=== PATIENT | male | born 1935 | race Caucasian/White ===

== ENCOUNTER 2021-08-17 16:24 | Emergency (ER) | payer OTHER, MEDICARE ==
--- NOTE | 2021-08-17 16:46 | EDM.PDOC ---
ED HPI GENERAL MEDICAL PROBLEM - General Chief Complaint: General Stated Complaint: fall, facial laceration, change in mental status Time Seen by Provider: 08/17/21 16:35 Source of Information: Reports: Patient, Half-Way Records - History of Present Illness INITIAL COMMENTS - FREE TEXT/NARRATIVE: Patient comes to the emergency department today from the local [facility] home with concerns of a fall and altered mental status. According to the nurses report from the [facility] this patient has had a history of sneaking alcohol into the facility. Today he was walking through the doorway when he fell striking his head. He has been drowsy and he has had a altered mental status as well. They did find a bottle of Unisom in his room with a total of 12 tablets left and 32 were in the bottle. The patient does admit that he took 7 of the Unisom tablets today so that he could sleep. Although he tells myself that he took 4 of them over the day to try to help him sleep. According to the long term this is not his normal mentation. Patient knows that he is in [place] although he thinks he is at the [facility]. He knows what year it is. He does complain of some pain to his left cheek. He had no weakness dizziness lightheadedness chest pain or reasons for falling he reports. He felt somewhat unstable on his feet and fell. He relates that he slept well last night but he wanted to sleep today so he took anywhere from 4 to 7 tablets of Unisom today so that he would sleep. This is something he does on a regular basis. He denies any alcohol. He denies any headache neck pain back pain. He denies any paresthesias upper lower extremities. No chest pain or shortness of breath or difficulty breathing. No fever no chills. No abdominal pain nausea or vomiting. No weakness dizziness lightheadedness. 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) Left Face/Facial Pain Score (Numeric/FACES): 3 - Related Data Allergies Allergy/AdvReac Type Severity Reaction Status Date / Time No Known Allergies Allergy Verified 08/17/21 17:16 Home Meds: Home Meds Acetaminophen [Pain Relief] 650 mg PO Q6HR PRN 08/17/21 [History] Albuterol Sulfate [Albuterol Sulfate Hfa] 8.5 gm IH Q4HR PRN 08/17/21 [History] Budesonide/Formoterol Fumarate [Symbicort 80-4.5 MCG] 2 puff IH BID 08/17/21 [History] Cetirizine [ZyrTEC] 10 mg PO DAILY 08/17/21 [History] Escitalopram [Lexapro] 10 mg PO DAILY 08/17/21 [History] Fluticasone Propionate [Flovent Diskus] 2 spray NASBOTH DAILY 08/17/21 [History] Furosemide [Lasix] 20 mg PO DAILY 08/17/21 [History] Gabapentin [Neurontin] 300 mg PO TID 08/17/21 [History] Ibuprofen [Advil] 200 mg PO BID PRN 08/17/21 [History] Melatonin 6 mg PO DAILY 08/17/21 [History] Memantine HCl [Namenda] 10 mg PO BID 08/17/21 [History] QUEtiapine Fumarate [Seroquel] 50 mg PO DAILY 08/17/21 [History] Riboflavin (Vitamin B2) [Riboflavin] 200 mg PO BID 08/17/21 [History] carvediloL [Carvedilol] 3.125 mg PO BID 08/17/21 [History] diphenhydrAMINE/Zinc Acetate [Banophen Anti-Itch 2%] 1 applic TOP BID PRN 08/17/21 [History] lisinopriL [Lisinopril] 10 mg PO DAILY 08/17/21 [History] ED ROS GENERAL - Review of Systems Review Of Systems: Comprehensive ROS is negative, except as noted in HPI. ED EXAM, GENERAL - Physical Exam Exam: See Below Exam Limited By: Altered Mental Status (He is somewhat slurred speech although I do not know his baseline.) General Appearance: Alert, WD/WN, No Apparent Distress Eye Exam: Bilateral Eye: EOMI, PERRL Ears: Normal External Exam, Normal Canal, Normal TMs Ear Exam: Bilateral Ear: TM normal Nose: Normal Inspection, Normal Mucosa Throat/Mouth: Normal Inspection, Normal Lips, Normal Teeth, Normal Oropharynx, Normal Voice Head: No: Atraumatic (On the left zygomatic arch there is a transverse laceration minimally into the subcutaneous tissue approximately 3 cm in length. At the bridge of the nose between the eyebrows there is an abrasion with a small amount of bleeding. No bony deformity to the face. Rest of the head and face is atrauma) Neck: Normal Inspection, Supple, Non-Tender, Full Range of Motion. No: Tender Lateral, Tender Midline Respiratory/Chest: No Respiratory Distress, Lungs Clear, Normal Breath Sounds, No Accessory Muscle Use, Chest Non-Tender Cardiovascular: Normal Peripheral Pulses, Regular Rate, Rhythm, No Murmur Peripheral Pulses: 2+: Radial (L), Radial (R), Posterior Tibial (L), Posterior Tibial (R), Dorsalis Pedis (L), Dorsalis Pedis (R) GI/Abdominal: Normal Bowel Sounds, Soft, Non-Tender (Male) Exam: Deferred Rectal (Males) Exam: Deferred Back Exam: Normal Inspection, Full Range of Motion Extremities: Normal Inspection, Normal Range of Motion, Non-Tender, No Pedal Edema, Normal Capillary Refill Neurological: Alert, Oriented (He knows what year it is he knows he is in [place] he knows that he fell. He remembers the events of the day. He is confused of being in the hospital), CN II-XII Intact, Normal Reflexes, No Motor/Sensory Deficits Psychiatric: Flat Affect Skin Exam: Warm, Dry, Intact, Normal Color, No Rash Course - Vital Signs Last Recorded V/S: Last Vital Signs Temp 98.1 F 08/17/21 16:25 Pulse 67 08/17/21 16:25 Resp 18 08/17/21 16:25 BP 156/98 H 08/17/21 16:25 Pulse Ox 98 08/17/21 16:25 - Orders/Labs/Meds Orders: Active Orders 24 hr Category Date Time Status Head wo Cont [CT] Stat Exams 08/17/21 16:37 Taken Maxillofacial w/o CM [Max Facial Sinus wo Cont] [CT] Exams 08/17/21 16:46 Taken Stat CULTURE URINE [RM] Stat Lab 08/17/21 17:10 Received SALICYLATE [REF] Stat Lab 08/17/21 17:10 Received Labs: Laboratory Tests 08/17/21 08/17/21 08/17/21 Range/Units 17:10 17:10 17:10 WBC 5.5 (4.0-10.2) K/uL RBC 4.72 (4.33-5.41) M/uL Hgb 14.5 (13.1-16.8) g/dL Hct 43.3 (39.0-49.0) % MCV 91.7 D (84.0-98.0) fL MCH 30.7 (28.2-33.3) pg MCHC 33.5 (31.7-36.0) g/dL RDW 13.8 (11.2-14.1) % Plt Count 183 (150-350) K/uL Neut % (Auto) 71.6 (45.0-80.0) % Lymph % (Auto) 14.8 (10.0-50.0) % [place] % (Auto) 9.9 (2.0-14.0) % Eos % (Auto) 3.5 (0.0-5.0) % Baso % (Auto) 0.2 (0.0-2.0) % Neut # (Auto) 3.91 (1.40-7.00) K/uL Lymph # (Auto) 0.81 (0.50-3.50) K/uL [place] # (Auto) 0.54 (0.00-1.00) K/uL Eos # (Auto) 0.19 (0.00-0.50) K/uL Baso # (Auto) 0.01 (0.00-0.20) K/uL PT (9.6-11.3) SEC INR APTT (23.6-29.8) SEC Sodium (136-145) mmol/L Potassium (3.5-5.1) mmol/L Chloride (98-107) mmol/L Carbon Dioxide (21.0-32.0) mmol/L Anion Gap (7-15) meq/L BUN (7-18) mg/dL Creatinine (0.51-1.17) mg/dL Est Cr Clr Drug Dosing Estimated GFR (MDRD) mL/min Glucose (70-99) mg/dL Calcium (8.5-10.1) mg/dL Total Bilirubin (0.2-1.0) mg/dL AST (15-37) U/L ALT (12-78) U/L Alkaline Phosphatase (46-116) IU/L Troponin I High Sens (<=76) ng/L Total Protein (6.4-8.2) g/dL Albumin (3.4-5.0) g/dL TSH, Ultra Sensitive (0.358-3.740) mIU/mL Specimen Type Urinvoid Urine Color Zainab Urine Appearance Clear Urine pH 6.5 (5.0-9.0) Ur Specific [place] 1.025 (1.005-1.030) Urine Protein Negative (NEGATIVE) mg/dL Urine Glucose (UA) Negative (NEGATIVE) mg/dL Urine Ketones Negative (NEGATIVE) mg/dL Urine Occult Blood Negative (NEGATIVE) Urine Nitrite Negative (NEGATIVE) Urine Bilirubin Negative (NEGATIVE) Urine Urobilinogen 1.0 (0.2-1.0) E.U./dL Ur Leukocyte Esterase Small H (NEGATIVE) Urine RBC Not seen /HPF Urine WBC 5-10 H /HPF Ur Epithelial Cells Occasional /LPF Urine Bacteria Few (NONE TO FEW) /HPF Urine Opiates Screen Negative (NEGATIVE) Ur Buprenorphine Scrn Negative (NEGATIVE) Ur Oxycodone Screen Negative (NEGATIVE) Ur EDDP (Meth Metab) Negative (NEGATIVE) Acetaminophen (10.0-30.0) ug/mL Ur Barbiturates Screen Negative (NEGATIVE) Ur Tricyclics Screen Negative (NEGATIVE) Ur Amphetamine Screen Negative (NEGATIVE) U Methamphetamines Scrn Negative (NEGATIVE) Urine MDMA Screen Negative (NEGATIVE) U Benzodiazepines Scrn Negative (NEGATIVE) U Cocaine Metab Screen Negative (NEGATIVE) U Marijuana (THC) Screen Negative (NEGATIVE) Ethyl Alcohol (0.000-0.080) g/dL 08/17/21 08/17/21 Range/Units 17:10 17:10 WBC (4.0-10.2) K/uL RBC (4.33-5.41) M/uL Hgb (13.1-16.8) g/dL Hct (39.0-49.0) % MCV (84.0-98.0) fL MCH (28.2-33.3) pg MCHC (31.7-36.0) g/dL RDW (11.2-14.1) % Plt Count (150-350) K/uL Neut % (Auto) (45.0-80.0) % Lymph % (Auto) (10.0-50.0) % [place] % (Auto) (2.0-14.0) % Eos % (Auto) (0.0-5.0) % Baso % (Auto) (0.0-2.0) % Neut # (Auto) (1.40-7.00) K/uL Lymph # (Auto) (0.50-3.50) K/uL [place] # (Auto) (0.00-1.00) K/uL Eos # (Auto) (0.00-0.50) K/uL Baso # (Auto) (0.00-0.20) K/uL PT 10.5 (9.6-11.3) SEC INR 1.0 APTT 22.4 L (23.6-29.8) SEC Sodium 141 (136-145) mmol/L Potassium 4.4 (3.5-5.1) mmol/L Chloride 102 (98-107) mmol/L Carbon Dioxide 28.4 (21.0-32.0) mmol/L Anion Gap 10.6 (7-15) meq/L BUN 20 H (7-18) mg/dL Creatinine 1.19 H (0.51-1.17) mg/dL Est Cr Clr Drug Dosing TNP Estimated GFR (MDRD) 58 mL/min Glucose 104 H (70-99) mg/dL Calcium 8.9 (8.5-10.1) mg/dL Total Bilirubin 0.6 (0.2-1.0) mg/dL AST 18 (15-37) U/L ALT 26 (12-78) U/L Alkaline Phosphatase 79 (46-116) IU/L Troponin I High Sens 45 (<=76) ng/L Total Protein 6.9 (6.4-8.2) g/dL Albumin 3.9 (3.4-5.0) g/dL TSH, Ultra Sensitive 1.136 (0.358-3.740) mIU/mL Specimen Type Urine Color Urine Appearance Urine pH (5.0-9.0) Ur Specific [place] (1.005-1.030) Urine Protein (NEGATIVE) mg/dL Urine Glucose (UA) (NEGATIVE) mg/dL Urine Ketones (NEGATIVE) mg/dL Urine Occult Blood (NEGATIVE) Urine Nitrite (NEGATIVE) Urine Bilirubin (NEGATIVE) Urine Urobilinogen (0.2-1.0) E.U./dL Ur Leukocyte Esterase (NEGATIVE) Urine RBC /HPF Urine WBC /HPF Ur Epithelial Cells /LPF Urine Bacteria (NONE TO FEW) /HPF Urine Opiates Screen (NEGATIVE) Ur Buprenorphine Scrn (NEGATIVE) Ur Oxycodone Screen (NEGATIVE) Ur EDDP (Meth Metab) (NEGATIVE) Acetaminophen 0.0 L (10.0-30.0) ug/mL Ur Barbiturates Screen (NEGATIVE) Ur Tricyclics Screen (NEGATIVE) Ur Amphetamine Screen (NEGATIVE) U Methamphetamines Scrn (NEGATIVE) Urine MDMA Screen (NEGATIVE) U Benzodiazepines Scrn (NEGATIVE) U Cocaine Metab Screen (NEGATIVE) U Marijuana (THC) Screen (NEGATIVE) Ethyl Alcohol 0.002 (0.000-0.080) g/dL Meds: Medications Discontinued Medications Generic Name Dose Route Start Last Admin Trade Name Freq PRN Reason Stop Dose Admin Diphtheria/Tetanus/Acell Pertussis 0.5 ml 08/17/21 19:05 08/17/21 19:36 Diphtheria,Pertussis(Acell),Tetanus Vaccine 0.5 Ml Syringe IM 08/17/21 19:06 0.5 ml .ONCE ONE Administration - Radiology Interpretation Free Text/Narrative:: CT of the head per radiology shows no acute intercranial abnormality. CT maxillofacial per radiology shows no acute facial fractures. - Re-Assessments/Exams Free Text/Narrative Re-Assessment/Exam: 08/17/21 23:51 IV was established labs were drawn. EKG without any signs of ischemia with a normal sinus rhythm. CT of the head and sinuses are negative. Laboratory evaluation is rather unremarkable. Other than a creatinine of 1.19 and a BUN of 20 which is at baseline. His troponin is normal at 45. His urinalysis shows a small amount of leuk esterase you WBCs 510 urine culture pending. Urine drug screen negative Alcohol negative. Acetaminophen negative. Salicylate pending. Abrasion between the eyebrows does not need repair this was cleansed bacitracin was applied. The very superficial thin laceration along the left zygomatic arch is rather thin and almost more like a skin tear into the subcutaneous tissue as well. I do not feel that sutures will be appropriate due to the very frail this aspect of this skin. The area was cleansed with chlorhexidine and sterile saline. A mixture of Steri-Strips as well as Dermabond were applied to the laceration with excellent skin approximation. The patient tolerated procedure well. The patient is alert appropriate and does not appear to be confused or in distress. He is able to ambulate on his own in the emergency department. I called and spoke with poison control with the concerns of the Unisom that he ingested in an attempt to take a nap today. [place] and had his he is vitally stable neurologically intact he can be discharged back to the nursing basic skill center at the [facility]. I discussed with the patient that he cannot take such medications as this without following the [id number] recommendations or the direction of his primary care provider that he is under in the long term. I asked him multiple times he did not take these medications in an attempt to harm himself or kill himself. He denies suicidal or homicidal ideation. We will discharge him back to the long term at this time. Departure - Departure Time of Disposition: 20:00 Disposition: DC/Tfer to [facility] 03 Clinical Impression: Fall Qualifiers: Encounter type: initial encounter Qualified Code(s): W19.XXXA - Unspecified fall, initial encounter Accidental medication overdose Qualifiers: Encounter type: initial encounter Qualified Code(s): T50.901A - Poisoning by unspecified drugs, medicaments and biological substances, accidental (unintentional), initial encounter Facial abrasion Qualifiers: Encounter type: initial encounter Qualified Code(s): S00.81XA - Abrasion of other part of head, initial encounter Facial laceration Qualifiers: Encounter type: initial encounter Qualified Code(s): S01.81XA - Laceration without foreign body of other part of head, initial encounter - Discharge Information Instructions: Fall Prevention in the Home, Adult, [id number], Laceration Care, Adult, [id number], Abrasion, [id number], Facial Laceration, Easy-to- Read Referrals: PCP,Unknown [Primary Care Provider] - Forms: ED Department Discharge Additional Instructions: Continue all previous medications. Do not allow the resident to have any medications on his own due to the risk of overdose as shown tonight. Facial abrasion. Cleanse twice daily with soap and water. Bacitracin and bandage until healed. Facial laceration, the glue and steri-strips will come off on their own. DO not get the area of the face wet. Do not pull at the steri strips or glue. This will fall off on its own. Trim with a finger nail clipper if needed when peeling to prevent pulling at it. Watch for signs of infection. His tetanus immunization was updated today in the ED. Return to the ED if new or worsening symptoms. Sepsis Event Note (ED) - Evaluation Sepsis Screening Result: No Definite Risk - Focused Exam Vital Signs: Vital Signs Temp Pulse Resp BP Pulse Ox 08/17/21 16:25 98.1 F 67 18 156/98 H 98 - My Orders Last 24 Hours: My Active Orders 08/17/21 16:37 Head wo Cont [CT] Stat 08/17/21 16:46 Maxillofacial w/o CM [Max Facial Sinus wo Cont] [CT] Stat 08/17/21 17:10 CULTURE URINE [RM] Stat SALICYLATE [REF] Stat - Assessment/Plan Last 24 Hours: My Active Orders 08/17/21 16:37 Head wo Cont [CT] Stat 08/17/21 16:46 Maxillofacial w/o CM [Max Facial Sinus wo Cont] [CT] Stat 08/17/21 17:10 CULTURE URINE [RM] Stat SALICYLATE [REF] Stat
[2021-08-17 17:31] LABS: PTT,PARTIAL THROMBOPLSTIN TIME 22.4 SEC (23.6-29.8)
[2021-08-17 17:39] LABS: BARBITURATE SCREEN,URINE NEGATIVE (NEGATIVE); BENZODIAZEPINES SCREEN,URINE NEGATIVE (NEGATIVE); EDDP,URINE SCREEN NEGATIVE (NEGATIVE); TCA SCREEN,URINE NEGATIVE (NEGATIVE); THC SCREEN,URINE 50 NG/ML NEGATIVE (NEGATIVE)
[2021-08-17 17:40] LABS: ANION GAP 10.6 meq/L (7-15); BUPRENORPHINE SCREEN,URINE NEGATIVE (NEGATIVE); CHLORIDE,CL 102 mmol/L (98-107); SODIUM,NA 141 mmol/L (136-145)
[2021-08-17] MEDS: Diphtheria,Pertussis(Acell),Tetanus Vaccine 0.5 ML Syringe IM ONE (19:36)
--- NOTE | 2021-08-20 09:36 | PCM.SN.2 ---
- Free Text/Narrative Note: urine culture returns with 50.,000-100,000 cfu of pseudomonas aeruginosa. sensitive to all. All to 's home and talk to nurse Tish. He is doing better, wounds are healing well, no more falls. Is not self medicating. Not on antibiotics. Given the holiday, the nurse states they have some ER packs of medications and do have cipro 500 mg bid for 5 days available for them to use. They will take this out of the stock and treat the patient
== END 2021-08-17 20:20 ==
LOC: LL.ED 16:24
DX: T45.0X1A Poisoning by antiallergic and antiemetic drugs, accidental (unintentional), initial encounter (principal); S01.81XA Laceration without foreign body of other part of head, initial encounter; Z23 Encounter for immunization; W19.XXXA Unspecified fall, initial encounter; Y93.01 Activity, walking, marching and hiking; Y92.129 Unspecified place in nursing home as the place of occurrence of the external cause
CPT/HCPCS: 12013; 36415; 70450; 70486; 80053; 80143; 80179; 80305-QW; 80307; 81001; 84443; 84484; 85025; 85610; 85730; 87086; 87088; 87186; 90471; 90715; 93005; 99284; 99285-25

== ENCOUNTER 2021-08-21 16:25 | Inpatient (IN) | payer OTHER, MEDICARE ==
[~2021-08-21 16:25] MED LIST: LORazepam 2 MG/ML SDV IVPUSH ONE
[2021-08-21] MEDS ORDERED: levETIRAcetam in NaCl (iso-os) 100 ML ONE (16:54)
--- NOTE | 2021-08-21 17:06 | EDM.PDOC ---
ED HPI GENERAL MEDICAL PROBLEM - General Chief Complaint: Neurological Problem Stated Complaint: altered mental status Time Seen by Provider: 08/21/21 16:40 Source of Information: Reports: Patient, EMS, Penitentiary Records, Other (longterm staff) History Limitations: Reports: Other (confused, alerted, garbled speech) - History of Present Illness INITIAL COMMENTS - FREE TEXT/NARRATIVE: Patient presents to the ED for altered mental status, seizures. Patient was seen here 08/17/2021 for a fall after taking too many unisom to help him sleep. He was evaluated, alert and ambulatory and had not fractures or intracranial bleeding so was sent home to the [facility]. They did take away what was lft of the unisom in the room at this time. He is on the basic side and usually comes out for meals and his medications. Walks without assistance. A call was placed to them as his urine culture yielded pseudomonas and he was start on cipro yesterday. recieved two doses. He had been doing well but decreased appetite and had not eaten lunch prior to getting the new antibiotic. He stayed in his room for the day and when the night nurse went to his room at 23:30 she found him confused, trying to put his socks on wrong and two on the wrong foot. he had nonsensical language, garbled speech and was incontinent. This was highly abnormal for him as he is fastidious about his appearance according to the nurse. She changed him and put him to bed. She called the provider environmental solutions engineer Raul Salazar and discussed what was going on. She was instructed to stop the cipro for the pseudomonas and start bactrim today. Was told the cipro might have caused the confusion, garbled speech and AMS. Was instructed to sent him to the ED today if it continued. This am the nursing staff found him " foggy", but orientated, refused most of breakfast, but more like himself. He stayed in his room most of the day but had normal vitals and no fever. He refused lunch and required an assist of two to go to the bathroom even though he usually goes on his own,. His son and ex had been trying to reach him given the holiday and when he didn't answer, they called the nurse to go check on him. She found him getting out of the opposite side of the bed that he usually gets out ofo , had garbled speech and managed to state he wanted water. He was unable to hold the glass,and spilled the water. EMS was called. when they got him out of his bed they found 2 blue capsules ( unisom) and an empty unisom bottle. blood glucose was 127, normal vitals and he was transported here. Onset: Unknown/Unsure (possibly last night at 23:30) - Related Data Allergies Allergy/AdvReac Type Severity Reaction Status Date / Time No Known Allergies Allergy Verified 08/17/21 17:16 Home Meds: Home Meds Acetaminophen [Pain Relief] 650 mg PO Q6HR PRN 08/17/21 [History] Albuterol Sulfate [Albuterol Sulfate Hfa] 8.5 gm IH Q4HR PRN 08/17/21 [History] Budesonide/Formoterol Fumarate [Symbicort 80-4.5 MCG] 2 puff IH BID 08/17/21 [History] Cetirizine [ZyrTEC] 10 mg PO DAILY 08/17/21 [History] Escitalopram [Lexapro] 10 mg PO DAILY 08/17/21 [History] Fluticasone Propionate [Flovent Diskus] 2 spray NASBOTH DAILY 08/17/21 [History] Furosemide [Lasix] 20 mg PO DAILY 08/17/21 [History] Gabapentin [Neurontin] 300 mg PO TID 08/17/21 [History] Ibuprofen [Advil] 200 mg PO BID PRN 08/17/21 [History] Melatonin 6 mg PO DAILY 08/17/21 [History] Memantine HCl [Namenda] 10 mg PO BID 08/17/21 [History] QUEtiapine Fumarate [Seroquel] 50 mg PO DAILY 08/17/21 [History] Riboflavin (Vitamin B2) [Riboflavin] 200 mg PO BID 08/17/21 [History] carvediloL [Carvedilol] 3.125 mg PO BID 08/17/21 [History] diphenhydrAMINE/Zinc Acetate [Banophen Anti-Itch 2%] 1 applic TOP BID PRN 08/17/21 [History] lisinopriL [Lisinopril] 10 mg PO DAILY 08/17/21 [History] Sulfamethoxazole/Trimethoprim [Bactrim Ds Tablet] 1 each PO BID 08/21/21 [History] Past Medical History Cardiovascular History: Reports: Heart Failure Respiratory History: Reports: COPD Psychiatric History: Reports: Depression Social & Family History - Alcohol Use Alcohol Use History: Yes - Recreational Drug Use Recreational Drug Use: No Drug Use in Last 12 Months: No ED ROS GENERAL - Review of Systems Review Of Systems: Unable To Obtain Reason Not Obtained: altered mental status, confusion Skin: Reports: Wound (no new ones, from previous) Neurological: Reports: Confusion, Trouble Speaking, Difficulty Walking ED EXAM, NEURO - Physical Exam Exam: See Below Exam Limited By: Other (altered, garbled speech, moves all extremities, responds to voice, awake and protecting his airway) Eye Exam: Bilateral Eye: EOMI, Normal Inspection, PERRL Ears: Normal External Exam, Normal Canal, Normal TMs Nose: Normal Inspection, Normal Mucosa Throat/Mouth: Normal Inspection, No Airway Compromise Head Exam: Other (note healing wounds, steri strip and echymosis of the face. ) Neck: Normal Inspection Respiratory/Chest: Lungs Clear, Normal Breath Sounds, No Accessory Muscle Use Cardiovascular: Regular Rate, Rhythm, No Edema, No Rub GI/Abdominal: Normal Bowel Sounds, Soft, Non-Tender. No: Rigid, Rebound Neurological: Other (eyes are open, follows some commands, can move all extremities, speech is garbled, generalized seizure activity lasting 5-10 seconds with return to confused but awake baseline. ) #1 Interpretation EKG Date: 08/21/21 Time: 16:52 Rhythm: NSR QRS: LBBB QT: Normal (unchanged from previous at 456) Comparison: No Change (08/17/2021) Course - Vital Signs Last Recorded V/S: Last Vital Signs Temp 36.7 C 08/21/21 16:30 Pulse 75 08/21/21 17:00 Resp 20 08/21/21 17:00 BP 130/92 H 08/21/21 17:00 Pulse Ox 98 08/21/21 17:00 - Orders/Labs/Meds Orders: Active Orders 24 hr Category Date Time Status Admission Status [Patient Status] [ADT] Routine ADT 08/21/21 17:40 Ordered Cardiac Monitoring [RC] . DIRECTED Care 08/21/21 16:11 Active Cardiac Monitoring [RC] . DIRECTED Care 08/21/21 17:40 Ordered Ruiz Catheter Insertion [Insert Urinary Catheter] [OM. Care 08/21/21 17:30 Ordered PC] Q24H Peripheral IV Care [RC] . DIRECTED Care 08/21/21 16:12 Active Urinary Catheter Assessment [RC] ASDIRECTED Care 08/21/21 17:45 Active Chest 1V Frontal [CR] Stat Exams 08/21/21 16:11 Ordered Head wo Cont [CT] Stat Exams 08/21/21 16:11 Taken SALICYLATE [REF] Stat Lab 08/21/21 16:32 Received Sodium Chloride 0.9% [Normal Saline] 1,000 ml Med 08/21/21 17:30 Ordered IV ASDIRECTED Sodium Chloride 0.9% [Saline Flush] Med 08/21/21 16:11 Active 10 ml FLUSH ASDIRECTED PRN Tobramycin [Nebcin] 100 mg Med 08/21/21 18:15 Ordered Sodium Chloride 0.9% [Normal Saline] 100 ml IV Q8H Peripheral IV Insertion Adult [OM.PC] Routine Oth 08/21/21 16:11 Ordered Medication Orders Sodium Chloride (Normal Saline) 1,000 mls @ 999 mls/hr IV ASDIRECTED NICOLAS Last Admin: 08/21/21 17:23 Dose: 999 mls/hr Documented by: COXTAM Tobramycin 100 mg/ Sodium (Chloride) 102.5 mls @ 100 mls/hr IV Q8H NICOLAS Sodium Chloride (Sodium Chloride 0.9% 10 Ml Syringe) 10 ml FLUSH ASDIRECTED PRN PRN Reason: Keep Vein Open Labs: Laboratory Tests 08/21/21 08/21/21 08/21/21 Range/Units 16:32 16:32 16:32 WBC 6.9 (4.0-10.2) K/uL RBC 4.54 (4.33-5.41) M/uL Hgb 14.0 (13.1-16.8) g/dL Hct 41.8 (39.0-49.0) % MCV 92.1 (84.0-98.0) fL MCH 30.8 (28.2-33.3) pg MCHC 33.5 (31.7-36.0) g/dL RDW 13.7 (11.2-14.1) % Plt Count 163 (150-350) K/uL Neut % (Auto) 68.5 (45.0-80.0) % Lymph % (Auto) 18.5 (10.0-50.0) % [place] % (Auto) 10.8 (2.0-14.0) % Eos % (Auto) 1.9 (0.0-5.0) % Baso % (Auto) 0.3 (0.0-2.0) % Neut # (Auto) 4.69 (1.40-7.00) K/uL Lymph # (Auto) 1.27 (0.50-3.50) K/uL [place] # (Auto) 0.74 (0.00-1.00) K/uL Eos # (Auto) 0.13 (0.00-0.50) K/uL Baso # (Auto) 0.02 (0.00-0.20) K/uL Sodium 141 (136-145) mmol/L Potassium 4.2 (3.5-5.1) mmol/L Chloride 104 (98-107) mmol/L Carbon Dioxide 25.4 (21.0-32.0) mmol/L Anion Gap 11.6 (7-15) meq/L BUN 27 H (7-18) mg/dL Creatinine 1.11 (0.51-1.17) mg/dL Est Cr Clr Drug Dosing TNP Estimated GFR (MDRD) > 60 mL/min Glucose 121 H (70-99) mg/dL Lactic Acid 1.0 (0.4-2.0) mmol/L Calcium 8.9 (8.5-10.1) mg/dL Total Bilirubin 0.8 (0.2-1.0) mg/dL AST 35 (15-37) U/L ALT 31 (12-78) U/L Alkaline Phosphatase 81 (46-116) IU/L Troponin I High Sens 66 (<=76) ng/L C-Reactive Protein 0.9 (<=0.9) mg/dL Total Protein 7.4 (6.4-8.2) g/dL Albumin 4.1 (3.4-5.0) g/dL Specimen Type Urine Color Urine Appearance Urine pH (5.0-9.0) Ur Specific [place] (1.005-1.030) Urine Protein (NEGATIVE) mg/dL Urine Glucose (UA) (NEGATIVE) mg/dL Urine Ketones (NEGATIVE) mg/dL Urine Occult Blood (NEGATIVE) Urine Nitrite (NEGATIVE) Urine Bilirubin (NEGATIVE) Urine Urobilinogen (0.2-1.0) E.U./dL Ur Leukocyte Esterase (NEGATIVE) Urine Opiates Screen (NEGATIVE) Ur Buprenorphine Scrn (NEGATIVE) Ur Oxycodone Screen (NEGATIVE) Ur EDDP (Meth Metab) (NEGATIVE) Acetaminophen (10.0-30.0) ug/mL Ur Barbiturates Screen (NEGATIVE) Ur Tricyclics Screen (NEGATIVE) Ur Amphetamine Screen (NEGATIVE) U Methamphetamines Scrn (NEGATIVE) Urine MDMA Screen (NEGATIVE) U Benzodiazepines Scrn (NEGATIVE) U Cocaine Metab Screen (NEGATIVE) U Marijuana (THC) Screen (NEGATIVE) Ethyl Alcohol 0.001 (0.000-0.080) g/dL 08/21/21 08/21/21 08/21/21 Range/Units 16:32 17:38 17:38 WBC (4.0-10.2) K/uL RBC (4.33-5.41) M/uL Hgb (13.1-16.8) g/dL Hct (39.0-49.0) % MCV (84.0-98.0) fL MCH (28.2-33.3) pg MCHC (31.7-36.0) g/dL RDW (11.2-14.1) % Plt Count (150-350) K/uL Neut % (Auto) (45.0-80.0) % Lymph % (Auto) (10.0-50.0) % [place] % (Auto) (2.0-14.0) % Eos % (Auto) (0.0-5.0) % Baso % (Auto) (0.0-2.0) % Neut # (Auto) (1.40-7.00) K/uL Lymph # (Auto) (0.50-3.50) K/uL [place] # (Auto) (0.00-1.00) K/uL Eos # (Auto) (0.00-0.50) K/uL Baso # (Auto) (0.00-0.20) K/uL Sodium (136-145) mmol/L Potassium (3.5-5.1) mmol/L Chloride (98-107) mmol/L Carbon Dioxide (21.0-32.0) mmol/L Anion Gap (7-15) meq/L BUN (7-18) mg/dL Creatinine (0.51-1.17) mg/dL Est Cr Clr Drug Dosing Estimated GFR (MDRD) mL/min Glucose (70-99) mg/dL Lactic Acid (0.4-2.0) mmol/L Calcium (8.5-10.1) mg/dL Total Bilirubin (0.2-1.0) mg/dL AST (15-37) U/L ALT (12-78) U/L Alkaline Phosphatase (46-116) IU/L Troponin I High Sens (<=76) ng/L C-Reactive Protein (<=0.9) mg/dL Total Protein (6.4-8.2) g/dL Albumin (3.4-5.0) g/dL Specimen Type Urincath Urine Color Yellow Urine Appearance Slightly cloudy Urine pH 5.5 (5.0-9.0) Ur Specific [place] >= 1.030 (1.005-1.030) Urine Protein Negative (NEGATIVE) mg/dL Urine Glucose (UA) Negative (NEGATIVE) mg/dL Urine Ketones 40 H (NEGATIVE) mg/dL Urine Occult Blood Negative (NEGATIVE) Urine Nitrite Negative (NEGATIVE) Urine Bilirubin Small H (NEGATIVE) Urine Urobilinogen 0.2 (0.2-1.0) E.U./dL Ur Leukocyte Esterase Negative (NEGATIVE) Urine Opiates Screen Negative (NEGATIVE) Ur Buprenorphine Scrn Negative (NEGATIVE) Ur Oxycodone Screen Negative (NEGATIVE) Ur EDDP (Meth Metab) Negative (NEGATIVE) Acetaminophen < 0.0 L (10.0-30.0) ug/mL Ur Barbiturates Screen Negative (NEGATIVE) Ur Tricyclics Screen Negative (NEGATIVE) Ur Amphetamine Screen Negative (NEGATIVE) U Methamphetamines Scrn Negative (NEGATIVE) Urine MDMA Screen Negative (NEGATIVE) U Benzodiazepines Scrn Negative (NEGATIVE) U Cocaine Metab Screen Negative (NEGATIVE) U Marijuana (THC) Screen Negative (NEGATIVE) Ethyl Alcohol (0.000-0.080) g/dL Meds: Medications Generic Name Dose Route Start Last Admin Trade Name Freq PRN Reason Stop Dose Admin Sodium Chloride 1,000 mls @ 999 mls/hr 08/21/21 17:30 08/21/21 17:23 Normal Saline IV 999 mls/hr ASDIRECTED NICOLAS Administration Tobramycin 100 mg/ Sodium 102.5 mls @ 100 mls/hr 08/21/21 18:15 Chloride IV Q8H NICOLAS Sodium Chloride 10 ml 08/21/21 16:11 Sodium Chloride 0.9% 10 Ml Syringe FLUSH ASDIRECTED PRN Keep Vein Open Discontinued Medications Generic Name Dose Route Start Last Admin Trade Name Freq PRN Reason Stop Dose Admin Levetiracetam Confirm 08/21/21 16:54 08/21/21 16:58 Levetiracetam In Nacl (Iso-Os) Administered 08/21/21 16:55 400 mls/hr Dose Administration 100 mls @ as directed .ROUTE .STK-MED ONE Lorazepam 2 mg 08/21/21 16:11 08/21/21 16:56 Lorazepam 2 Mg/Ml Sdv IVPUSH 08/21/21 16:12 1 mg ONETIME ONE Administration Lorazepam Confirm 08/21/21 17:11 08/21/21 17:22 Lorazepam 2 Mg/Ml Sdv Administered 08/21/21 17:12 Not Given Dose 2 mg .ROUTE .STK-MED ONE Lorazepam 1 mg 08/21/21 17:16 08/21/21 17:21 Lorazepam 2 Mg/Ml Sdv IVPUSH 08/21/21 17:17 1 mg ONETIME ONE Administration - Radiology Interpretation Free Text/Narrative:: ct of the discussed with radiology,. No acute changes, chronic changes noted, see report. cxr, no acute seen, preliminary report only - Re-Assessments/Exams Free Text/Narrative Re-Assessment/Exam: Patietn presents alerted, seizure activity, intermittant periods of altered, history of pillhoarding. concern for possibility of unknown amount of unisom and unknown ingestion time. Labs, urine, urine drug, ct head, chest x-ray and ekg. iv started noraml saline bolus 500 cc then 100 /hr. 08/21/21 17:22 has been having spells of seizure type activity, no incontinence for 5-10 seconds generalized. return to confused baseline and garbled speech. given 1 mg of ativan then 500 mg of keppra started iv. about 10 minutes later given 1 mg ativan IVp. protecting his airway. Ct of the head without acute changes, discussed with radiologist. 08/21/21 17:54 nursing staff did tell me that hey still had the old unisom bottle from 08/17 and the 12 pills. They serached his room and found a bottle of motrin 200 mg strength with 3 tablets gone out of it with the empty unisom bottle and two tablets. Unsure of how many tablets there were or when he would have taken them. Did discuss with poison control, normal labs, head ct, urine is pending, salicylate a send out. anion gap is high, has a prolonged qtc, qrs duration, but this is unchanged, will continue gentle hydration. 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 Other differential diagnosis are cipro adverse side effect, post concussion injury with seizures. Will still need to treat the pseudomonas, control seizures and keppra regular doses and ativan for breakthrough. Patient is sedated, protecting his airway and will be admitted for inpatient for at least two midnights as he may not be appropriate for basic cares anymore and need placement with skilled side. 08/21/21 18:18 /discussion with the son Robert that he used to live with. He is not surprised as to the outcome and has actually seen his dad in this position due to overuse/abuse of the Benadryl before. He has a history of hiding pills/alcohol etc. Does agree that he probably needs the skilled side of the [place] home. Will have social work/case management work on this. Departure - Departure Time of Disposition: 17:41 Disposition: Admitted As Inpatient 66 Clinical Impression: Seizures, Altered mental status Accidental medication overdose Qualifiers: Encounter type: initial encounter Qualified Code(s): T50.901A - Poisoning by unspecified drugs, medicaments and biological substances, accidental (uninte ntional), initial encounter - Discharge Information Referrals: Raul Salazar PA [Physician Tool/Die Maker] - Forms: ED Department Discharge Additional Instructions: USE ED NOTE FOR ADMISSION H & P Sepsis Event Note (ED) - Evaluation Sepsis Screening Result: No Definite Risk - Focused Exam Vital Signs: Vital Signs Temp Pulse Resp BP Pulse Ox 08/21/21 17:00 75 20 130/92 H 98 08/21/21 16:45 80 18 115/93 H 99 08/21/21 16:30 36.7 C 85 18 149/72 H 98 - My Orders Last 24 Hours: My Active Orders 08/21/21 16:11 Cardiac Monitoring [RC] . DIRECTED Chest 1V Frontal [CR] Stat Head wo Cont [CT] Stat Sodium Chloride 0.9% [Saline Flush] 10 ml FLUSH ASDIRECTED PRN Peripheral IV Insertion Adult [OM.PC] Routine 08/21/21 16:12 Peripheral IV Care [RC] . DIRECTED 08/21/21 16:32 SALICYLATE [REF] Stat 08/21/21 17:30 Ruiz Catheter Insertion [Insert Urinary Catheter] [OM.PC] Q24H Sodium Chloride 0.9% [Normal Saline] 1,000 ml IV ASDIRECTED 08/21/21 17:40 Admission Status [Patient Status] [ADT] Routine Cardiac Monitoring [RC] . DIRECTED 08/21/21 17:45 Urinary Catheter Assessment [RC] ASDIRECTED 08/21/21 18:15 Tobramycin [Nebcin] 100 mg Sodium Chloride 0.9% [Normal Saline] 100 ml IV Q8H - Assessment/Plan Last 24 Hours: My Active Orders 08/21/21 16:11 Cardiac Monitoring [RC] . DIRECTED Chest 1V Frontal [CR] Stat Head wo Cont [CT] Stat Sodium Chloride 0.9% [Saline Flush] 10 ml FLUSH ASDIRECTED PRN Peripheral IV Insertion Adult [OM.PC] Routine 08/21/21 16:12 Peripheral IV Care [RC] . DIRECTED 08/21/21 16:32 SALICYLATE [REF] Stat 08/21/21 17:30 Ruiz Catheter Insertion [Insert Urinary Catheter] [OM.PC] Q24H Sodium Chloride 0.9% [Normal Saline] 1,000 ml IV ASDIRECTED 08/21/21 17:40 Admission Status [Patient Status] [ADT] Routine Cardiac Monitoring [RC] . DIRECTED 08/21/21 17:45 Urinary Catheter Assessment [RC] ASDIRECTED 08/21/21 18:15 Tobramycin [Nebcin] 100 mg Sodium Chloride 0.9% [Normal Saline] 100 ml IV Q8H
[2021-08-21] MEDS ORDERED: LORazepam 2 MG/ML SDV ONE (17:11)
[2021-08-21 17:12] LABS: ANION GAP 11.6 meq/L (7-15); CHLORIDE,CL 104 mmol/L (98-107); SODIUM,NA 141 mmol/L (136-145)
[2021-08-21] MEDS ORDERED: LORazepam 2 MG/ML SDV IVPUSH ONE (17:16)
[2021-08-21] MEDS ORDERED: Sodium Chloride 0.9% 1,000 ML IV SCH (17:30)
[2021-08-21 17:52] LABS: BARBITURATE SCREEN,URINE NEGATIVE (NEGATIVE); BENZODIAZEPINES SCREEN,URINE NEGATIVE (NEGATIVE); EDDP,URINE SCREEN NEGATIVE (NEGATIVE); TCA SCREEN,URINE NEGATIVE (NEGATIVE); THC SCREEN,URINE 50 NG/ML NEGATIVE (NEGATIVE)
[2021-08-21 17:54] LABS: BUPRENORPHINE SCREEN,URINE NEGATIVE (NEGATIVE)
[2021-08-21] MEDS ORDERED: Promethazine 25 MG Tab PO PRN (18:24)
[2021-08-21] MEDS ORDERED: Ibuprofen 200 MG Tab PO PRN (18:36)
[2021-08-21] MEDS ORDERED: Albuterol 6.7 GM Inhaler INH PRN (18:36)
[2021-08-21] MEDS ORDERED: Folic Acid 50 MG/10 ML MDV IV SCH (18:45)
[2021-08-21] MEDS: Thiamine 500 MG in Sodium Chloride 0.9% 250 ML IV SCH (21:13)
[2021-08-21] MEDS: Pantoprazole 40 MG Vial IV SCH (21:15)
[2021-08-21] MEDS: Sodium Chloride 0.9% 10 ML Syringe FLUSH PRN (21:15)
[2021-08-22] MEDS: Morphine 2 MG/ML SYRINGE IVPUSH PRN ×2 (01:06→17:10)
[2021-08-22] MEDS: Sodium Chloride 0.9% 1,000 ML IV SCH ×2 (01:07→15:48)
[2021-08-22] MEDS: Thiamine 500 MG in Sodium Chloride 0.9% 250 ML IV SCH ×3 (04:45→18:31)
[2021-08-22] MEDS ORDERED: Folic Acid 50 MG/10 ML MDV PO SCH (07:15)
[2021-08-22] MEDS: QUEtiapine 25 MG Tab PO SCH (07:55)
[2021-08-22] MEDS: Carvedilol 3.125 MG Tab PO SCH ×2 (07:55→17:16)
[2021-08-22] MEDS: Cetirizine 10 MG Tab PO SCH (07:56)
[2021-08-22] MEDS: Memantine 10 MG Tab PO SCH ×2 (07:56→17:16)
[2021-08-22] MEDS: Folic Acid 1 MG Tab PO SCH (07:56)
[2021-08-22] MEDS: Pantoprazole 40 MG Vial IV SCH ×2 (07:57→19:30)
[2021-08-22] MEDS: Formoterol/Mometasone 100-5 MCG 8.8 GM Inhaler IH SCH ×2 (07:58→17:11)
[2021-08-22] MEDS: LORazepam 2 MG/ML SDV IV PRN ×2 (07:58→12:08)
[2021-08-22] MEDS: Fluticasone Propionate Nasal Spray 16 GM Bottle NASBOTH SCH (07:59)
[2021-08-22] MEDS ORDERED: RIBOFLAVIN 100 MG PO SCH (08:00)
[2021-08-22] MEDS: Acetaminophen 325 MG Tab PO PRN (08:00)
--- NOTE | 2021-08-22 08:00 | PCM.PN ---
- General Info Date of Service: 08/22/21 Admission Dx/Problem (Free Text): Admission Diagnosis/Problem Admission Diagnosis/Problem Seizure after head injury abuse of benadryl altered mental status history of alcohol abuse Subjective Update: Patient slept part of the night, was agitated, confused and trying to get out of bed to urinate ( has saenz catheter). No neurological deficits, can be redirected. Drowsy. Passed bedside swallow test. no new complaints, seizures have stopped, VSS - Review of Systems General: Reports: No Symptoms. Denies: Fever, Chills HEENT: Reports: No Symptoms. Denies: Headaches, Sore Throat, Rhinitis Pulmonary: Reports: No Symptoms. Denies: Shortness of Breath, Cough, Sputum Cardiovascular: Reports: No Symptoms. Denies: Chest Pain, Orthopnea Gastrointestinal: Reports: No Symptoms. Denies: Abdominal Pain, Diarrhea, Nausea, Vomiting Genitourinary: Reports: Urgency (due to saenz catheter) Musculoskeletal: Reports: No Symptoms Skin: Reports: Other (healing bruises right knee, bilateral arms, face) Neurological: Reports: Confusion, Difficulty Walking Psychiatric: Reports: Confusion, Agitation - Patient Data Vitals - Most Recent: Last Vital Signs Temp 36.0 C L 08/22/21 07:05 Pulse 63 08/22/21 07:05 Resp 18 08/22/21 07:05 BP 167/60 H 08/22/21 07:05 Pulse Ox 96 08/22/21 07:05 Weight - Most Recent: 67.5 kg I&O - Last 24 Hours: Intake & Output 08/21/21 08/22/21 08/22/21 22:59 06:59 14:59 Intake Total 50 2155 Output Total 600 Balance 50 1555 Lab Results Last 24 Hours: Laboratory Results - last 24 hr 08/21/21 08/21/21 08/21/21 Range/Units 16:32 16:32 16:32 WBC 6.9 (4.0-10.2) K/uL RBC 4.54 (4.33-5.41) M/uL Hgb 14.0 (13.1-16.8) g/dL Hct 41.8 (39.0-49.0) % MCV 92.1 (84.0-98.0) fL MCH 30.8 (28.2-33.3) pg MCHC 33.5 (31.7-36.0) g/dL RDW 13.7 (11.2-14.1) % Plt Count 163 (150-350) K/uL Neut % (Auto) 68.5 (45.0-80.0) % Lymph % (Auto) 18.5 (10.0-50.0) % Campbell % (Auto) 10.8 (2.0-14.0) % Eos % (Auto) 1.9 (0.0-5.0) % Baso % (Auto) 0.3 (0.0-2.0) % Neut # (Auto) 4.69 (1.40-7.00) K/uL Lymph # (Auto) 1.27 (0.50-3.50) K/uL Campbell # (Auto) 0.74 (0.00-1.00) K/uL Eos # (Auto) 0.13 (0.00-0.50) K/uL Baso # (Auto) 0.02 (0.00-0.20) K/uL Sodium 141 (136-145) mmol/L Potassium 4.2 (3.5-5.1) mmol/L Chloride 104 (98-107) mmol/L Carbon Dioxide 25.4 (21.0-32.0) mmol/L Anion Gap 11.6 (7-15) meq/L BUN 27 H (7-18) mg/dL Creatinine 1.11 (0.51-1.17) mg/dL Est Cr Clr Drug Dosing TNP Estimated GFR (MDRD) > 60 mL/min Glucose 121 H (70-99) mg/dL Lactic Acid 1.0 (0.4-2.0) mmol/L Calcium 8.9 (8.5-10.1) mg/dL Total Bilirubin 0.8 (0.2-1.0) mg/dL AST 35 (15-37) U/L ALT 31 (12-78) U/L Alkaline Phosphatase 81 (46-116) IU/L Troponin I High Sens 66 (<=76) ng/L C-Reactive Protein 0.9 (<=0.9) mg/dL Total Protein 7.4 (6.4-8.2) g/dL Albumin 4.1 (3.4-5.0) g/dL Specimen Type Urine Color Urine Appearance Urine pH (5.0-9.0) Ur Specific [place] (1.005-1.030) Urine Protein (NEGATIVE) mg/dL Urine Glucose (UA) (NEGATIVE) mg/dL Urine Ketones (NEGATIVE) mg/dL Urine Occult Blood (NEGATIVE) Urine Nitrite (NEGATIVE) Urine Bilirubin (NEGATIVE) Urine Urobilinogen (0.2-1.0) E.U./dL Ur Leukocyte Esterase (NEGATIVE) Urine Opiates Screen (NEGATIVE) Ur Buprenorphine Scrn (NEGATIVE) Ur Oxycodone Screen (NEGATIVE) Ur EDDP (Meth Metab) (NEGATIVE) Acetaminophen (10.0-30.0) ug/mL Ur Barbiturates Screen (NEGATIVE) Ur Tricyclics Screen (NEGATIVE) Ur Amphetamine Screen (NEGATIVE) U Methamphetamines Scrn (NEGATIVE) Urine MDMA Screen (NEGATIVE) U Benzodiazepines Scrn (NEGATIVE) U Cocaine Metab Screen (NEGATIVE) U Marijuana (THC) Screen (NEGATIVE) Ethyl Alcohol 0.001 (0.000-0.080) g/dL 08/21/21 08/21/21 08/21/21 Range/Units 16:32 17:38 17:38 WBC (4.0-10.2) K/uL RBC (4.33-5.41) M/uL Hgb (13.1-16.8) g/dL Hct (39.0-49.0) % MCV (84.0-98.0) fL MCH (28.2-33.3) pg MCHC (31.7-36.0) g/dL RDW (11.2-14.1) % Plt Count (150-350) K/uL Neut % (Auto) (45.0-80.0) % Lymph % (Auto) (10.0-50.0) % Campbell % (Auto) (2.0-14.0) % Eos % (Auto) (0.0-5.0) % Baso % (Auto) (0.0-2.0) % Neut # (Auto) (1.40-7.00) K/uL Lymph # (Auto) (0.50-3.50) K/uL Campbell # (Auto) (0.00-1.00) K/uL Eos # (Auto) (0.00-0.50) K/uL Baso # (Auto) (0.00-0.20) K/uL Sodium (136-145) mmol/L Potassium (3.5-5.1) mmol/L Chloride (98-107) mmol/L Carbon Dioxide (21.0-32.0) mmol/L Anion Gap (7-15) meq/L BUN (7-18) mg/dL Creatinine (0.51-1.17) mg/dL Est Cr Clr Drug Dosing Estimated GFR (MDRD) mL/min Glucose (70-99) mg/dL Lactic Acid (0.4-2.0) mmol/L Calcium (8.5-10.1) mg/dL Total Bilirubin (0.2-1.0) mg/dL AST (15-37) U/L ALT (12-78) U/L Alkaline Phosphatase (46-116) IU/L Troponin I High Sens (<=76) ng/L C-Reactive Protein (<=0.9) mg/dL Total Protein (6.4-8.2) g/dL Albumin (3.4-5.0) g/dL Specimen Type Urincath Urine Color Yellow Urine Appearance Slightly cloudy Urine pH 5.5 (5.0-9.0) Ur Specific [place] >= 1.030 (1.005-1.030) Urine Protein Negative (NEGATIVE) mg/dL Urine Glucose (UA) Negative (NEGATIVE) mg/dL Urine Ketones 40 H (NEGATIVE) mg/dL Urine Occult Blood Negative (NEGATIVE) Urine Nitrite Negative (NEGATIVE) Urine Bilirubin Small H (NEGATIVE) Urine Urobilinogen 0.2 (0.2-1.0) E.U./dL Ur Leukocyte Esterase Negative (NEGATIVE) Urine Opiates Screen Negative (NEGATIVE) Ur Buprenorphine Scrn Negative (NEGATIVE) Ur Oxycodone Screen Negative (NEGATIVE) Ur EDDP (Meth Metab) Negative (NEGATIVE) Acetaminophen < 0.0 L (10.0-30.0) ug/mL Ur Barbiturates Screen Negative (NEGATIVE) Ur Tricyclics Screen Negative (NEGATIVE) Ur Amphetamine Screen Negative (NEGATIVE) U Methamphetamines Scrn Negative (NEGATIVE) Urine MDMA Screen Negative (NEGATIVE) U Benzodiazepines Scrn Negative (NEGATIVE) U Cocaine Metab Screen Negative (NEGATIVE) U Marijuana (THC) Screen Negative (NEGATIVE) Ethyl Alcohol (0.000-0.080) g/dL Med Orders - Current: Current Medications Acetaminophen (Acetaminophen 325 Mg Tab) 650 mg PO Q4H PRN PRN Reason: Pain (Mild 1-3)/fever Albuterol (Albuterol 6.7 Gm Inhaler) 0 gm INH Q4HR PRN PRN Reason: Shortness of Breath Carvedilol (Carvedilol 3.125 Mg Tab) 3.125 mg PO BID [facility] Cetirizine HCl (Cetirizine 10 Mg Tab) 10 mg PO DAILY [facility] Enoxaparin Sodium (Enoxaparin 40 Mg/0.4 Ml Syringe) 40 mg SUBCUT DAILY [facility] Escitalopram Oxalate (Escitalopram 20 Mg Tab) 10 mg PO DAILY [facility] Fluticasone Propionate (Fluticasone Propionate Nasal Reva 16 Gm Bottle) 0 gm NASBOTH DAILY [facility] Folic Acid (Folic Acid 1 Mg Tab) 1 mg PO DAILY [facility] Sodium Chloride (Normal Saline) 1,000 mls @ 999 mls/hr IV ASDIRECTED [facility] Last Admin: 08/21/21 17:23 Dose: 999 mls/hr Documented by: Tobramycin 100 mg/ Sodium (Chloride) 102.5 mls @ 100 mls/hr IV Q8H [facility] Last Admin: 08/22/21 03:25 Dose: 100 mls/hr Documented by: Thiamine HCl 500 mg/ Sodium (Chloride) 255 mls @ 250 mls/hr IV Q8H [facility] Stop: 08/24/21 20:00 Last Admin: 08/22/21 04:45 Dose: 250 mls/hr Documented by: Levetiracetam 500 mg/ Premix 100 mls @ 400 mls/hr IV BID [facility] Thiamine HCl 250 mg/ Sodium (Chloride) 252.5 mls @ 250 mls/hr IV DAILY [facility] Stop: 08/29/21 09:01 Sodium Chloride (Normal Saline) 1,000 mls @ 100 mls/hr IV ASDIRECTED [facility] Last Admin: 08/22/21 01:07 Dose: 100 mls/hr Documented by: Ibuprofen (Ibuprofen 200 Mg Tab) 200 mg PO BID PRN PRN Reason: Pain Lorazepam (Lorazepam 2 Mg/Ml Sdv) 1 mg IV Q1H PRN PRN Reason: Agitation/seizures Melatonin (Melatonin 3 Mg Tab) 6 mg PO BEDTIME [facility] Memantine (Memantine 10 Mg Tab) 10 mg PO BID [facility] Mometasone Furoate/Formoterol Fumar (Formoterol/Mometasone 100-5 Mcg 8.8 Gm Inhaler) 2 puff IH BID [facility] Morphine Sulfate (Morphine 2 Mg/Ml Syringe) 2 mg IVPUSH Q2H PRN PRN Reason: Pain (severe 7-10) Last Admin: 08/22/21 01:06 Dose: 2 mg Documented by: Non-Formulary Medication (Riboflavin (Vitamin B2) [Riboflavin]) 200 mg PO BID [facility] Pantoprazole Sodium (Pantoprazole 40 Mg Vial) 40 mg IV Q12HR [facility] Last Admin: 08/21/21 21:15 Dose: 40 mg Documented by: Promethazine HCl (Promethazine 25 Mg Tab) 25 mg PO Q6H PRN PRN Reason: nausea, able to take PO Last Admin: 08/22/21 01:07 Dose: 25 mg Documented by: Quetiapine Fumarate (Quetiapine 25 Mg Tab) 50 mg PO DAILY [facility] Sodium Chloride (Sodium Chloride 0.9% 10 Ml Syringe) 10 ml FLUSH ASDIRECTED PRN PRN Reason: Keep Vein Open Last Admin: 08/21/21 21:15 Dose: 10 ml Documented by: Discontinued Medications Folic Acid (Folic Acid 50 Mg/10 Ml Mdv) 1 mg IV DAILY [facility] Last Admin: 08/21/21 21:13 Dose: 1 mg Documented by: Folic Acid (Folic Acid 50 Mg/10 Ml Mdv) 1 mg PO DAILY [facility] Levetiracetam (Levetiracetam In Nacl (Iso-Os)) Confirm Administered Dose 100 mls @ as directed .ROUTE .STK-MED ONE Stop: 08/21/21 16:55 Last Admin: 08/21/21 16:58 Dose: 400 mls/hr Documented by: Lorazepam (Lorazepam 2 Mg/Ml Sdv) 2 mg IVPUSH ONETIME ONE Stop: 08/21/21 16:12 Last Admin: 08/21/21 16:56 Dose: 1 mg Documented by: Lorazepam (Lorazepam 2 Mg/Ml Sdv) Confirm Administered Dose 2 mg .ROUTE .STK-MED ONE Stop: 08/21/21 17:12 Last Admin: 08/21/21 17:22 Dose: Not Given Documented by: Lorazepam (Lorazepam 2 Mg/Ml Sdv) 1 mg IVPUSH ONETIME ONE Stop: 08/21/21 17:17 Last Admin: 08/21/21 17:21 Dose: 1 mg Documented by: - Exam Quality Assessment: No: Supplemental Oxygen Urinary Catheter Total Time: 0Days 0Hours General: Alert, Cooperative, No Acute Distress HEENT: Pupils Equal, Pupils Reactive, EOMI Neck: Supple Lungs: Clear to Auscultation, Normal Respiratory Effort Cardiovascular: Regular Rate GI/Abdominal Exam: Normal Bowel Sounds, Soft. No: Rigid, Rebound (Male) Exam: Other (catheter draining well) Neurological: No New Focal Deficit Psy/Mental Status: Alert, Other (confused but redirectable, attempts to get out of bed) - Patient Data Lab Results Last 24 hrs: Laboratory Results - last 24 hr 08/21/21 08/21/21 08/21/21 Range/Units 16:32 16:32 16:32 WBC 6.9 (4.0-10.2) K/uL RBC 4.54 (4.33-5.41) M/uL Hgb 14.0 (13.1-16.8) g/dL Hct 41.8 (39.0-49.0) % MCV 92.1 (84.0-98.0) fL MCH 30.8 (28.2-33.3) pg MCHC 33.5 (31.7-36.0) g/dL RDW 13.7 (11.2-14.1) % Plt Count 163 (150-350) K/uL Neut % (Auto) 68.5 (45.0-80.0) % Lymph % (Auto) 18.5 (10.0-50.0) % Campbell % (Auto) 10.8 (2.0-14.0) % Eos % (Auto) 1.9 (0.0-5.0) % Baso % (Auto) 0.3 (0.0-2.0) % Neut # (Auto) 4.69 (1.40-7.00) K/uL Lymph # (Auto) 1.27 (0.50-3.50) K/uL Campbell # (Auto) 0.74 (0.00-1.00) K/uL Eos # (Auto) 0.13 (0.00-0.50) K/uL Baso # (Auto) 0.02 (0.00-0.20) K/uL Sodium 141 (136-145) mmol/L Potassium 4.2 (3.5-5.1) mmol/L Chloride 104 (98-107) mmol/L Carbon Dioxide 25.4 (21.0-32.0) mmol/L Anion Gap 11.6 (7-15) meq/L BUN 27 H (7-18) mg/dL Creatinine 1.11 (0.51-1.17) mg/dL Est Cr Clr Drug Dosing TNP Estimated GFR (MDRD) > 60 mL/min Glucose 121 H (70-99) mg/dL Lactic Acid 1.0 (0.4-2.0) mmol/L Calcium 8.9 (8.5-10.1) mg/dL Total Bilirubin 0.8 (0.2-1.0) mg/dL AST 35 (15-37) U/L ALT 31 (12-78) U/L Alkaline Phosphatase 81 (46-116) IU/L Troponin I High Sens 66 (<=76) ng/L C-Reactive Protein 0.9 (<=0.9) mg/dL Total Protein 7.4 (6.4-8.2) g/dL Albumin 4.1 (3.4-5.0) g/dL Specimen Type Urine Color Urine Appearance Urine pH (5.0-9.0) Ur Specific [place] (1.005-1.030) Urine Protein (NEGATIVE) mg/dL Urine Glucose (UA) (NEGATIVE) mg/dL Urine Ketones (NEGATIVE) mg/dL Urine Occult Blood (NEGATIVE) Urine Nitrite (NEGATIVE) Urine Bilirubin (NEGATIVE) Urine Urobilinogen (0.2-1.0) E.U./dL Ur Leukocyte Esterase (NEGATIVE) Urine Opiates Screen (NEGATIVE) Ur Buprenorphine Scrn (NEGATIVE) Ur Oxycodone Screen (NEGATIVE) Ur EDDP (Meth Metab) (NEGATIVE) Acetaminophen (10.0-30.0) ug/mL Ur Barbiturates Screen (NEGATIVE) Ur Tricyclics Screen (NEGATIVE) Ur Amphetamine Screen (NEGATIVE) U Methamphetamines Scrn (NEGATIVE) Urine MDMA Screen (NEGATIVE) U Benzodiazepines Scrn (NEGATIVE) U Cocaine Metab Screen (NEGATIVE) U Marijuana (THC) Screen (NEGATIVE) Ethyl Alcohol 0.001 (0.000-0.080) g/dL 08/21/21 08/21/21 08/21/21 Range/Units 16:32 17:38 17:38 WBC (4.0-10.2) K/uL RBC (4.33-5.41) M/uL Hgb (13.1-16.8) g/dL Hct (39.0-49.0) % MCV (84.0-98.0) fL MCH (28.2-33.3) pg MCHC (31.7-36.0) g/dL RDW (11.2-14.1) % Plt Count (150-350) K/uL Neut % (Auto) (45.0-80.0) % Lymph % (Auto) (10.0-50.0) % [place] % (Auto) (2.0-14.0) % Eos % (Auto) (0.0-5.0) % Baso % (Auto) (0.0-2.0) % Neut # (Auto) (1.40-7.00) K/uL Lymph # (Auto) (0.50-3.50) K/uL [place] # (Auto) (0.00-1.00) K/uL Eos # (Auto) (0.00-0.50) K/uL Baso # (Auto) (0.00-0.20) K/uL Sodium (136-145) mmol/L Potassium (3.5-5.1) mmol/L Chloride (98-107) mmol/L Carbon Dioxide (21.0-32.0) mmol/L Anion Gap (7-15) meq/L BUN (7-18) mg/dL Creatinine (0.51-1.17) mg/dL Est Cr Clr Drug Dosing Estimated GFR (MDRD) mL/min Glucose (70-99) mg/dL Lactic Acid (0.4-2.0) mmol/L Calcium (8.5-10.1) mg/dL Total Bilirubin (0.2-1.0) mg/dL AST (15-37) U/L ALT (12-78) U/L Alkaline Phosphatase (46-116) IU/L Troponin I High Sens (<=76) ng/L C-Reactive Protein (<=0.9) mg/dL Total Protein (6.4-8.2) g/dL Albumin (3.4-5.0) g/dL Specimen Type Urincath Urine Color Yellow Urine Appearance Slightly cloudy Urine pH 5.5 (5.0-9.0) Ur Specific [place] >= 1.030 (1.005-1.030) Urine Protein Negative (NEGATIVE) mg/dL Urine Glucose (UA) Negative (NEGATIVE) mg/dL Urine Ketones 40 H (NEGATIVE) mg/dL Urine Occult Blood Negative (NEGATIVE) Urine Nitrite Negative (NEGATIVE) Urine Bilirubin Small H (NEGATIVE) Urine Urobilinogen 0.2 (0.2-1.0) E.U./dL Ur Leukocyte Esterase Negative (NEGATIVE) Urine Opiates Screen Negative (NEGATIVE) Ur Buprenorphine Scrn Negative (NEGATIVE) Ur Oxycodone Screen Negative (NEGATIVE) Ur EDDP (Meth Metab) Negative (NEGATIVE) Acetaminophen < 0.0 L (10.0-30.0) ug/mL Ur Barbiturates Screen Negative (NEGATIVE) Ur Tricyclics Screen Negative (NEGATIVE) Ur Amphetamine Screen Negative (NEGATIVE) U Methamphetamines Scrn Negative (NEGATIVE) Urine MDMA Screen Negative (NEGATIVE) U Benzodiazepines Scrn Negative (NEGATIVE) U Cocaine Metab Screen Negative (NEGATIVE) U Marijuana (THC) Screen Negative (NEGATIVE) Ethyl Alcohol (0.000-0.080) g/dL Result Diagrams: 08/22/21 07:34 08/22/21 07:34 Sepsis Event Note - Evaluation Sepsis Screening Result: No Definite Risk - Focused Exam Vital Signs: Vital Signs Temp Pulse Resp BP Pulse Ox 08/22/21 07:05 36.0 C L 63 18 167/60 H 96 08/21/21 20:00 36.3 C 60 16 143/60 H 92 L - Problem List & Annotations (1) History of alcohol abuse SNOMED Code(s): 784101835 Code(s): F10.11 - ALCOHOL ABUSE, IN REMISSION Status: Chronic Priority: Low Current Visit: Yes Annotation/Comment:: will place him on folic acid daily, thiamine on wu's protocol of 500 mg iv tid x 3 days then 250 daily for 5 days. alcohol was negative (2) Accidental medication overdose SNOMED Code(s): 6261267504 Code(s): T50.901A - POISONING BY UNSP DRUG/MEDS/BIOL SUBST, ACCIDENTAL, INIT Status: Acute Priority: Medium Current Visit: No Qualifiers: Encounter type: initial encounter Qualified Code(s): T50.901A - Poisoning by unspecified drugs, medicaments and biological substances, accidental (unintentional), initial encounter Annotation/Comment:: Patient has a long standing history per family of hoarding pills and abusing them. Currently he has been doing this with unisom. Unknown last ingestion, but ongoing. Need to continue to monitor for seizures, treat with keppra bid and ativan. Can try to decrease keppra in 1-2 days and see if seizures recur. Needs jail due to difficulty ambulating, concern for safety while handling his own meds. (3) Altered mental status SNOMED Code(s): 106601294 Code(s): R41.82 - ALTERED MENTAL STATUS, UNSPECIFIED Status: Acute Priority: High Current Visit: No Qualifiers: Altered mental status type: disorientation Qualified Code(s): R41.0 - Disorientation, unspecified Annotation/Comment:: Due to benadryl abuse, possibility of cipro interaction but has not had this in 24 hours and continues so unlikely. Coudl be due to post concussion from fall 08/17/2021. Will continue to monitor. ativan for agitiation as needed. Doesnot recall events from 08/21/2021 (4) Seizures SNOMED Code(s): 62460321 Code(s): R56.9 - UNSPECIFIED CONVULSIONS Status: Acute Priority: Medium Current Visit: No Annotation/Comment:: Probable due to benadryl, none in the last 12 hours. will continue keppra and consider switching to orals tomorrow then consider trial off. ativan for break through - Problem List Review Problem List Initiated/Reviewed/Updated: Yes - My Orders Last 24 Hours: My Active Orders 08/21/21 Breakfast Regular Diet [DIET] 08/21/21 16:11 Cardiac Monitoring [RC] Q2HR Chest 1V Frontal [CR] Stat Head wo Cont [CT] Stat Sodium Chloride 0.9% [Saline Flush] 10 ml FLUSH ASDIRECTED PRN Peripheral IV Insertion Adult [OM.PC] Routine 08/21/21 16:12 Peripheral IV Care [RC] . DIRECTED 08/21/21 16:32 SALICYLATE [REF] Stat 08/21/21 17:30 Saenz Catheter Insertion [Insert Urinary Catheter] [OM.PC] Q24H Sodium Chloride 0.9% [Normal Saline] 1,000 ml IV ASDIRECTED 08/21/21 17:40 Admission Status [Patient Status] [ADT] Routine Cardiac Monitoring [RC] . DIRECTED 08/21/21 17:45 Urinary Catheter Assessment [RC] ASDIRECTED 08/21/21 18:15 Tobramycin [Nebcin] 100 mg Sodium Chloride 0.9% [Normal Saline] 100 ml IV Q8H 08/21/21 18:24 Oxygen Therapy [RC] PRN Up With Assistance [RC] ASDIRECTED VTE/DVT Education [RC] PER UNIT ROUTINE Vital Signs [RC] Q4HWA [place] Bedside Swallow Assessment [RC] AMPROC Consult to Case Management/Dye Padder Operator [CONS] Routine OT Evaluation and Treatment [CONS] Routine PT Evaluation and Treatment [CONS] Routine Acetaminophen [TylenoL] 650 mg PO Q4H PRN LORazepam [Ativan] 1 mg IV Q1H PRN Morphine 2 mg IVPUSH Q2H PRN Promethazine [Phenergan] 25 mg PO Q6H PRN Resuscitation Status Routine 08/21/21 18:25 Intake and Output [RC] 06,18 08/21/21 18:26 Pulse Oximetry [RC] Q4HWA 08/21/21 18:30 Thiamine [Vitamin B-1] 500 mg Sodium Chloride 0.9% [Normal Saline] 250 ml IV Q8H 08/21/21 18:36 Albuterol [Proventil HFA] 0 gm INH Q4HR PRN Ibuprofen [Motrin] 200 mg PO BID PRN 08/21/21 18:39 RT Post Treatment Assessment [RC] Click to Edit RT Pre-Treatment Assessment [RC] Click to Edit 08/21/21 20:00 Pantoprazole [ProTONIX IV] 40 mg IV Q12HR 08/21/21 21:30 Sodium Chloride 0.9% [Normal Saline] 1,000 ml IV ASDIRECTED 08/22/21 07:34 BASIC METABOLIC PANEL,BMP [CHEM] AM CBC WITH AUTO DIFF [HEME] AM MAGNESIUM [CHEM] AM 08/22/21 08:00 Cetirizine [ZyrTEC] 10 mg PO DAILY Enoxaparin [Lovenox] 40 mg SUBCUT DAILY Escitalopram [Lexapro] 10 mg PO DAILY Fluticasone Propionate [Flonase] 0 gm NASBOTH DAILY Folic Acid 1 mg PO DAILY Memantine [Namenda] 10 mg PO BID Mometasone/Formoterol [Dulera 100-5 MCG] 2 puff IH BID QUEtiapine [SEROqueL] 50 mg PO DAILY Riboflavin (Vitamin B2) [Riboflavin] 200 mg PO BID carvediloL [Coreg] 3.125 mg PO BID levETIRAcetam in NaCl (iso-os) 500 mg Premix Bag 1 bag IV BID 08/22/21 20:00 Melatonin 6 mg PO BEDTIME 08/23/21 05:11 BASIC METABOLIC PANEL,BMP [CHEM] AM CBC WITH AUTO DIFF [HEME] AM 08/24/21 05:11 BASIC METABOLIC PANEL,BMP [CHEM] AM CBC WITH AUTO DIFF [HEME] AM 08/25/21 08:00 Thiamine [Vitamin B-1] 250 mg Sodium Chloride 0.9% [Normal Saline] 250 ml IV DAILY - Assessment Assessment:: Benadryl abuse history of alcohol abuse altered mental status self care deficit in person living alone - Plan Plan:: Continue monitoring for seizures, continue keppra bid and ativan prn. will have PT and OT see tomorrow for adls, safety, ambulating. Continue treatment with thiamine and folic acid. Unsafe to return to basic side due to two ED visits in one week with abuse of OTC meds. Family also feels this way. Will need to find placement skilled side for him once his mental status clears.
[2021-08-22] MEDS: Enoxaparin 40 MG/0.4 ML Syringe SUBCUT SCH (08:01)
[2021-08-22] MEDS: Sodium Chloride 0.9% 10 ML Syringe FLUSH PRN ×5 (08:02→19:34)
[2021-08-22] MEDS: Escitalopram 20 MG Tab PO SCH (08:03)
[2021-08-22] MEDS: levETIRAcetam in NaCl (iso-os) 500 MG in Premix Bag 1 BAG IV SCH ×4 (08:04→17:11)
[2021-08-22 08:17] LABS: ANION GAP 15.5 meq/L (7-15); CHLORIDE,CL 109 mmol/L (98-107); SODIUM,NA 143 mmol/L (136-145)
[2021-08-22] MEDS: Melatonin 3 MG Tab PO SCH (19:30)
[2021-08-23] MEDS: Thiamine 500 MG in Sodium Chloride 0.9% 250 ML IV SCH ×4 (03:18→20:30)
[2021-08-23] MEDS: Sodium Chloride 0.9% 1,000 ML IV SCH (06:21)
[2021-08-23 07:33] LABS: CHLORIDE,CL 109 mmol/L (98-107); SODIUM,NA 142 mmol/L (136-145)
[2021-08-23 07:38] LABS: ANION GAP 18.9 meq/L (7-15)
[2021-08-23] MEDS: Memantine 10 MG Tab PO SCH ×2 (07:51→18:06)
[2021-08-23] MEDS: Carvedilol 3.125 MG Tab PO SCH ×2 (07:51→18:06)
[2021-08-23] MEDS: QUEtiapine 25 MG Tab PO SCH (07:52)
[2021-08-23] MEDS: Escitalopram 20 MG Tab PO SCH (07:52)
[2021-08-23] MEDS: Cetirizine 10 MG Tab PO SCH (07:54)
[2021-08-23] MEDS: Folic Acid 1 MG Tab PO SCH (07:54)
[2021-08-23] MEDS: Enoxaparin 40 MG/0.4 ML Syringe SUBCUT SCH (07:57)
[2021-08-23] MEDS: Fluticasone Propionate Nasal Spray 16 GM Bottle NASBOTH SCH (07:59)
[2021-08-23] MEDS: Pantoprazole 40 MG Vial IV SCH ×2 (08:01→20:30)
[2021-08-23] MEDS: Formoterol/Mometasone 100-5 MCG 8.8 GM Inhaler IH SCH ×2 (08:06→18:13)
[2021-08-23] MEDS: Morphine 2 MG/ML SYRINGE IVPUSH PRN ×4 (08:16→17:59)
[2021-08-23] MEDS: Furosemide 20 MG Tab PO SCH (08:16)
[2021-08-23] MEDS: levETIRAcetam in NaCl (iso-os) 500 MG in Premix Bag 1 BAG IV SCH ×2 (08:24)
--- NOTE | 2021-08-23 08:45 | PCM.PN ---
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 No seizure activity since last night. did not sleep well last night but not giving anything other than melatonin due to abuse of unisom and ssizures. Continuing to treat with thiamine for possible wernicke's. He is eating some,. Has not ambulated yet, still has saenz catheter. hands are a little swollen today, possible due to positioning and bruising of the forearm with gravity versus lasix being held due to dehydration. complains that he is tired, does not recall why he is here. When asked if he took any unisom lately he replied " i took some yesterday but don't know how much" Functional Status: Reports: Tolerating Diet. Denies: Ambulating, New Symptoms - Review of Systems General: Reports: Weakness, Fatigue. Denies: Fever HEENT: Reports: No Symptoms Pulmonary: Reports: Cough (chronic, at baseline) Cardiovascular: Reports: No Symptoms Gastrointestinal: Reports: No Symptoms Genitourinary: Reports: No Symptoms Neurological: Reports: Confusion (improvving, starting to recall things) Psychiatric: Reports: Confusion - Patient Data Vitals - Most Recent: Last Vital Signs Temp 36.2 C 08/23/21 07:45 Pulse 67 08/23/21 07:51 Resp 20 08/23/21 07:45 BP 115/53 L 08/23/21 07:51 Pulse Ox 94 L 08/23/21 07:45 Weight - Most Recent: 67.5 kg I&O - Last 24 Hours: Intake & Output 08/22/21 08/23/21 08/23/21 22:59 06:59 14:59 Intake Total 300 1265 Output Total 350 550 Balance -50 715 Lab Results Last 24 Hours: Laboratory Results - last 24 hr 08/23/21 08/23/21 Range/Units 07:10 07:10 WBC 6.1 (4.0-10.2) K/uL RBC 3.93 L (4.33-5.41) M/uL Hgb 12.1 L (13.1-16.8) g/dL Hct 36.7 L (39.0-49.0) % MCV 93.4 (84.0-98.0) fL MCH 30.8 (28.2-33.3) pg MCHC 33.0 (31.7-36.0) g/dL RDW 13.4 (11.2-14.1) % Plt Count 136 L (150-350) K/uL Neut % (Auto) 76.2 (45.0-80.0) % Lymph % (Auto) 12.2 (10.0-50.0) % [place] % (Auto) 8.3 (2.0-14.0) % Eos % (Auto) 3.0 (0.0-5.0) % Baso % (Auto) 0.3 (0.0-2.0) % Neut # (Auto) 4.61 (1.40-7.00) K/uL Lymph # (Auto) 0.74 (0.50-3.50) K/uL [place] # (Auto) 0.50 (0.00-1.00) K/uL Eos # (Auto) 0.18 (0.00-0.50) K/uL Baso # (Auto) 0.02 (0.00-0.20) K/uL Sodium 142 (136-145) mmol/L Potassium 4.3 (3.5-5.1) mmol/L Chloride 109 H (98-107) mmol/L Carbon Dioxide 18.4 L (21.0-32.0) mmol/L Anion Gap 18.9 H (7-15) meq/L BUN 18 (7-18) mg/dL Creatinine 0.84 (0.51-1.17) mg/dL Est Cr Clr Drug Dosing 60.27 mL/min Estimated GFR (MDRD) > 60 mL/min Glucose 58 L (70-99) mg/dL Calcium 7.7 L (8.5-10.1) mg/dL Med Orders - Current: Current Medications Acetaminophen (Acetaminophen 325 Mg Tab) 650 mg PO Q4H PRN PRN Reason: Pain (Mild 1-3)/fever Last Admin: 08/22/21 08:00 Dose: 650 mg Documented by: Albuterol (Albuterol 6.7 Gm Inhaler) 0 gm INH Q4HR PRN PRN Reason: Shortness of Breath Carvedilol (Carvedilol 3.125 Mg Tab) 3.125 mg PO BID [facility] Last Admin: 08/23/21 07:51 Dose: 3.125 mg Documented by: Cetirizine HCl (Cetirizine 10 Mg Tab) 10 mg PO DAILY [facility] Last Admin: 08/23/21 07:54 Dose: 10 mg Documented by: Enoxaparin Sodium (Enoxaparin 40 Mg/0.4 Ml Syringe) 40 mg SUBCUT DAILY [facility] Last Admin: 08/23/21 07:57 Dose: 40 mg Documented by: Escitalopram Oxalate (Escitalopram 20 Mg Tab) 10 mg PO DAILY [facility] Last Admin: 08/23/21 07:52 Dose: 10 mg Documented by: Fluticasone Propionate (Fluticasone Propionate Nasal [place] 16 Gm Bottle) 0 gm NASBOTH DAILY [facility] Last Admin: 08/23/21 07:59 Dose: 2 spray Documented by: Folic Acid (Folic Acid 1 Mg Tab) 1 mg PO DAILY [facility] Last Admin: 08/23/21 07:54 Dose: 1 mg Documented by: Furosemide (Furosemide 20 Mg Tab) 20 mg PO DAILY [facility] Last Admin: 08/23/21 08:16 Dose: 20 mg Documented by: Tobramycin 100 mg/ Sodium (Chloride) 102.5 mls @ 100 mls/hr IV Q8H [facility] Last Admin: 08/23/21 02:07 Dose: 100 mls/hr Documented by: Thiamine HCl 500 mg/ Sodium (Chloride) 255 mls @ 250 mls/hr IV Q8H [facility] Stop: 08/24/21 20:00 Last Admin: 08/23/21 03:18 Dose: 250 mls/hr Documented by: Levetiracetam 500 mg/ Premix 100 mls @ 400 mls/hr IV BID [facility] Last Admin: 08/23/21 08:24 Dose: 400 mls/hr Documented by: Sodium Chloride (Normal Saline) 1,000 mls @ 100 mls/hr IV ASDIRECTED [facility] Last Admin: 08/23/21 06:21 Dose: 100 mls/hr Documented by: Ibuprofen (Ibuprofen 200 Mg Tab) 200 mg PO BID PRN PRN Reason: Pain Lorazepam (Lorazepam 2 Mg/Ml Sdv) 1 mg IV Q1H PRN PRN Reason: Agitation/seizures Last Admin: 08/22/21 12:08 Dose: 1 mg Documented by: Melatonin (Melatonin 3 Mg Tab) 6 mg PO BEDTIME [facility] Last Admin: 08/22/21 19:30 Dose: 6 mg Documented by: Memantine (Memantine 10 Mg Tab) 10 mg PO BID [facility] Last Admin: 08/23/21 07:51 Dose: 10 mg Documented by: Mometasone Furoate/Formoterol Fumar (Formoterol/Mometasone 100-5 Mcg 8.8 Gm Inhaler) 2 puff IH BID [facility] Last Admin: 08/23/21 08:06 Dose: 2 puff Documented by: Morphine Sulfate (Morphine 2 Mg/Ml Syringe) 2 mg IVPUSH Q2H PRN PRN Reason: Pain (severe 7-10) Last Admin: 08/23/21 08:16 Dose: 2 mg Documented by: Non-Formulary Medication (Riboflavin (Vitamin B2) [Riboflavin]) 200 mg PO BID [facility] Pantoprazole Sodium (Pantoprazole 40 Mg Vial) 40 mg IV Q12HR [facility] Last Admin: 08/23/21 08:01 Dose: 40 mg Documented by: Promethazine HCl (Promethazine 25 Mg Tab) 25 mg PO Q6H PRN PRN Reason: nausea, able to take PO Last Admin: 08/22/21 01:07 Dose: 25 mg Documented by: Quetiapine Fumarate (Quetiapine 25 Mg Tab) 50 mg PO DAILY [facility] Last Admin: 08/23/21 07:52 Dose: 50 mg Documented by: Sodium Chloride (Sodium Chloride 0.9% 10 Ml Syringe) 10 ml FLUSH ASDIRECTED PRN PRN Reason: Keep Vein Open Last Admin: 08/22/21 19:34 Dose: 10 ml Documented by: Discontinued Medications Folic Acid (Folic Acid 50 Mg/10 Ml Mdv) 1 mg IV DAILY [facility] Last Admin: 08/21/21 21:13 Dose: 1 mg Documented by: Folic Acid (Folic Acid 50 Mg/10 Ml Mdv) 1 mg PO DAILY [facility] Last Admin: 08/22/21 10:58 Dose: Not Given Documented by: Levetiracetam (Levetiracetam In Nacl (Iso-Os)) Confirm Administered Dose 100 mls @ as directed .ROUTE .STK-MED ONE Stop: 08/21/21 16:55 Last Admin: 08/21/21 16:58 Dose: 400 mls/hr Documented by: Sodium Chloride (Normal Saline) 1,000 mls @ 999 mls/hr IV ASDIRECTED [facility] Last Admin: 08/21/21 17:23 Dose: 999 mls/hr Documented by: Thiamine HCl 250 mg/ Sodium (Chloride) 252.5 mls @ 250 mls/hr IV DAILY [facility] Stop: 08/29/21 09:01 Lorazepam (Lorazepam 2 Mg/Ml Sdv) 2 mg IVPUSH ONETIME ONE Stop: 08/21/21 16:12 Last Admin: 08/21/21 16:56 Dose: 1 mg Documented by: Lorazepam (Lorazepam 2 Mg/Ml Sdv) Confirm Administered Dose 2 mg .ROUTE .STK-MED ONE Stop: 08/21/21 17:12 Last Admin: 08/21/21 17:22 Dose: Not Given Documented by: Lorazepam (Lorazepam 2 Mg/Ml Sdv) 1 mg IVPUSH ONETIME ONE Stop: 08/21/21 17:17 Last Admin: 08/21/21 17:21 Dose: 1 mg Documented by: - Exam Urinary Catheter Total Time: 1Days 4Hours General: Alert, Cooperative, No Acute Distress HEENT: Pupils Equal Neck: Supple Lungs: Clear to Auscultation Cardiovascular: Regular Rate GI/Abdominal Exam: Normal Bowel Sounds, Soft Extremities: Other (some sweling of the ffingers bilaterally, both forearms are echymotic from previous fall. no weeping of the skin). No: Pedal Edema Wound/Incisions: Healing Well Neurological: No New Focal Deficit - Patient Data Lab Results Last 24 hrs: Laboratory Results - last 24 hr 08/23/21 08/23/21 Range/Units 07:10 07:10 WBC 6.1 (4.0-10.2) K/uL RBC 3.93 L (4.33-5.41) M/uL Hgb 12.1 L (13.1-16.8) g/dL Hct 36.7 L (39.0-49.0) % MCV 93.4 (84.0-98.0) fL MCH 30.8 (28.2-33.3) pg MCHC 33.0 (31.7-36.0) g/dL RDW 13.4 (11.2-14.1) % Plt Count 136 L (150-350) K/uL Neut % (Auto) 76.2 (45.0-80.0) % Lymph % (Auto) 12.2 (10.0-50.0) % [place] % (Auto) 8.3 (2.0-14.0) % Eos % (Auto) 3.0 (0.0-5.0) % Baso % (Auto) 0.3 (0.0-2.0) % Neut # (Auto) 4.61 (1.40-7.00) K/uL Lymph # (Auto) 0.74 (0.50-3.50) K/uL [place] # (Auto) 0.50 (0.00-1.00) K/uL Eos # (Auto) 0.18 (0.00-0.50) K/uL Baso # (Auto) 0.02 (0.00-0.20) K/uL Sodium 142 (136-145) mmol/L Potassium 4.3 (3.5-5.1) mmol/L Chloride 109 H (98-107) mmol/L Carbon Dioxide 18.4 L (21.0-32.0) mmol/L Anion Gap 18.9 H (7-15) meq/L BUN 18 (7-18) mg/dL Creatinine 0.84 (0.51-1.17) mg/dL Est Cr Clr Drug Dosing 60.27 mL/min Estimated GFR (MDRD) > 60 mL/min Glucose 58 L (70-99) mg/dL Calcium 7.7 L (8.5-10.1) mg/dL Result Diagrams: 08/23/21 07:10 08/23/21 07:10 Sepsis Event Note - Evaluation Sepsis Screening Result: No Definite Risk - Focused Exam Vital Signs: Vital Signs Temp Pulse Pulse Resp BP BP Pulse Ox 08/23/21 07:51 67 115/53 L 08/23/21 07:45 36.2 C 67 20 115/53 L 94 L - Problem List & Annotations (1) History of alcohol abuse SNOMED Code(s): 074562250 Code(s): F10.11 - ALCOHOL ABUSE, IN REMISSION Status: Chronic Priority: Low Current Visit: Yes Annotation/Comment:: will continue the initial dose of thiamine through the . At that time if he is still here can transition to oral supplement will place him on folic acid daily, thiamine on wernicke's protocol of 500 mg iv tid x 3 days then 250 daily for 5 days. alcohol was negative (2) Accidental medication overdose SNOMED Code(s): 5126212834 Code(s): T50.901A - POISONING BY UNSP DRUG/MEDS/BIOL SUBST, ACCIDENTAL, INIT Status: Acute Priority: Medium Current Visit: No Qualifiers: Encounter type: initial encounter Qualified Code(s): T50.901A - Poisoning by unspecified drugs, medicaments and biological substances, accidental (unintentional), initial encounter Annotation/Comment:: Improving, no ffurther seizures, now admits that he took unisom on the day he came in. would like to sleep better, not giving more than melatonin at this point Patient has a long standing history per family of hoarding pills and abusing them. Currently he has been doing this with unisom. Unknown last ingestion, but ongoing. Need to continue to monitor for seizures, treat with keppra bid and ativan. Can try to decrease keppra in 1-2 days and see if seizures recur. Needs group home due to difficulty ambulating, concern for safety while handling his own meds. (3) Altered mental status SNOMED Code(s): 476357168 Code(s): R41.82 - ALTERED MENTAL STATUS, UNSPECIFIED Status: Acute Priority: High Current Visit: No Qualifiers: Altered mental status type: disorientation Qualified Code(s): R41.0 - Disorientation, unspecified Annotation/Comment:: Improving. continue the keppra until tomorrow ( 24 hours seizure free) and then can transition to oral or off medicaiton for a trial Due to benadryl abuse, possibility of cipro interaction but has not had this in 24 hours and continues so unlikely. Coudl be due to post concussion from fall 08/17/2021. Will continue to monitor. ativan for agitiation as needed. Doesn ot recall events from 08/21/2021 (4) Seizures SNOMED Code(s): 60565315 Code(s): R56.9 - UNSPECIFIED CONVULSIONS Status: Acute Priority: Medium Current Visit: No Annotation/Comment:: Probable due to benadryl, none in the last 12 hours. will continue keppra and consider switching to orals tomorrow then consider trial off. ativan for break through - Problem List Review Problem List Initiated/Reviewed/Updated: Yes - My Orders Last 24 Hours: My Active Orders 08/22/21 08:00 Cetirizine [ZyrTEC] 10 mg PO DAILY Enoxaparin [Lovenox] 40 mg SUBCUT DAILY Escitalopram [Lexapro] 10 mg PO DAILY Fluticasone Propionate [Flonase] 0 gm NASBOTH DAILY Folic Acid 1 mg PO DAILY Memantine [Namenda] 10 mg PO BID Mometasone/Formoterol [Dulera 100-5 MCG] 2 puff IH BID QUEtiapine [SEROqueL] 50 mg PO DAILY Riboflavin (Vitamin B2) [Riboflavin] 200 mg PO BID carvediloL [Coreg] 3.125 mg PO BID levETIRAcetam in NaCl (iso-os) 500 mg Premix Bag 1 bag IV BID 08/22/21 20:00 Melatonin 6 mg PO BEDTIME 08/23/21 08:15 Furosemide [Lasix] 20 mg PO DAILY 08/24/21 05:11 BASIC METABOLIC PANEL,BMP [CHEM] AM CBC WITH AUTO DIFF [HEME] AM - Assessment Assessment:: Benadryl abuse history of alcohol abuse altered mental status self care deficit in person living alone - Plan Plan:: 08/23/2021 doing better. Stop IV fluids. Swelling in the fingers likely positional and due to echymosis in the forearms, not fluid overload as he had no pedal edema. Will restart his lasix po today. mentation is better. Continue IV keppra until tomorrow. re-evaluate need for oral dosing or trial off since the diphenhydramine should be cleared by then. Needs to ambulate today. Awaiting care consult for placement to skilled. Communicated this to 's home. Continue monitoring for seizures, continue keppra bid and ativan prn. will have PT and OT see tomorrow for adls, safety, ambulating. Continue treatment with thiamine and folic acid. Unsafe to return to basic side due to two ED visits in one week with abuse of OTC meds. Family also feels this way. Will need to find placement skilled side for him once his mental status clears.
--- NOTE | 2021-08-23 10:26 | PCM.SN.2 ---
- Free Text/Narrative Note: dietary evaluation finds the patient has a malnutrition diagnosis. Will add this to the problem list and attempt to give supplements
[2021-08-23] MEDS: Acetaminophen 325 MG Tab PO PRN (16:34)
--- NOTE | 2021-08-23 17:44 | PCM.SN.2 ---
- Free Text/Narrative Note: note that a skilled bed is available for the patient at [facility] tomorrow. will stop the ativan and keppra. urine in the morning to see if needs continued antibiotics. if has seizure tonight needs continues keppra. TERI saenz prior to discharge. Make sure he goes home on folic acid and thiamine and supplements and does not have access to any OTC meds.
[2021-08-23] MEDS ORDERED: Nicotine 21 MG/24 Hr Patch TRDERM ONE (17:52)
[2021-08-23] MEDS ORDERED: Morphine 2 MG/ML SYRINGE IVPUSH PRN (18:54)
[2021-08-23] MEDS ORDERED: Ibuprofen 200 MG Tab PO PRN (18:54)
[2021-08-23] MEDS: Melatonin 3 MG Tab PO SCH (20:31)
[2021-08-24] MEDS: Thiamine 500 MG in Sodium Chloride 0.9% 250 ML IV SCH ×2 (04:09→11:59)
[2021-08-24 07:58] LABS: ANION GAP 12.9 meq/L (7-15); CHLORIDE,CL 106 mmol/L (98-107); SODIUM,NA 140 mmol/L (136-145)
[2021-08-24] MEDS: Pantoprazole 40 MG Vial IV SCH (08:35)
[2021-08-24] MEDS: QUEtiapine 25 MG Tab PO SCH (08:36)
[2021-08-24] MEDS: Cetirizine 10 MG Tab PO SCH (08:37)
[2021-08-24] MEDS: Memantine 10 MG Tab PO SCH (08:37)
[2021-08-24] MEDS: Carvedilol 3.125 MG Tab PO SCH (08:37)
[2021-08-24] MEDS: Enoxaparin 40 MG/0.4 ML Syringe SUBCUT SCH (08:41)
[2021-08-24] MEDS: Escitalopram 20 MG Tab PO SCH (08:41)
[2021-08-24] MEDS: Folic Acid 1 MG Tab PO SCH (08:41)
[2021-08-24] MEDS: Furosemide 20 MG Tab PO SCH (08:41)
[2021-08-24] MEDS: Fluticasone Propionate Nasal Spray 16 GM Bottle NASBOTH SCH (08:43)
[2021-08-24] MEDS: Formoterol/Mometasone 100-5 MCG 8.8 GM Inhaler IH SCH (08:44)
[2021-08-24] MEDS: Acetaminophen 325 MG Tab PO PRN (11:49)
--- NOTE | 2021-08-24 11:52 | PCM.DCSUM1 ---
Discharge Summary - Hospital Course Free Text/Narrative:: Pt. admitted 08/21 following a doxylamine overdose, decreased LOC, generalized seizures, and UTI. Pt. did fall and he has a facial laceration. He had been admitted on 08/17 for accidental doxylamine overdose. He was found to have a UTI at that time and was started on Cipro. There was some question as to whether this Cipro was contributing to his decreased LOC so it was discontinued and he was started on IV tobramycin, as his urine was positive for pseudomonas. Seizure were initially treated with IV ativan and Keppra. He has not had any further seizure activity, so these were discontinued prior to my assuming care of the patient yesterday. He had no further seizure activity overnight. Overall, pt. is becoming more alert. He was alert to place and season this AM. His only complaint is of headache. CT scan of brain was negative. Plan if for patient to [facility] so that he is unable to have access to over the counter medications. He will receive 2 days of IV ceftazidime for his UTI with repeat UA once he has finished this course of medication. Pt. was also started on oral folate and thiamine, as he does have a history of alcoholism as well. Diagnosis: Stroke: No - Discharge Data Discharge Date: 08/24/21 Discharge Disposition: DC/Tfer to SNF 03 Condition: Good - Referral to Home Health Primary Care Physician: FOREST Thomason - Discharge Diagnosis/Problem(s) (1) UTI (urinary tract infection) SNOMED Code(s): 36799193 ICD Code: N39.0 - URINARY TRACT INFECTION, SITE NOT SPECIFIED Status: Acute Current Visit: Yes (2) Accidental medication overdose SNOMED Code(s): 5856056067 ICD Code: T50.901A - POISONING BY UNSP DRUG/MEDS/BIOL SUBST, ACCIDENTAL, INIT Status: Acute Priority: Medium Current Visit: No Problem Details: Improving, no ffurther seizures, now admits that he took unisom on the day he came in. would like to sleep better, not giving more than melatonin at this point Patient has a long standing history per family of hoarding pills and abusing them. Currently he has been doing this with unisom. Unknown last ingestion, but ongoing. Need to continue to monitor for seizures, treat with keppra bid and ativan. Can try to decrease keppra in 1-2 days and see if seizures recur. Needs penitentiary due to difficulty ambulating, concern for safety while handling his own meds. Qualifiers: Encounter type: initial encounter Qualified Code(s): T50.901A - Poisoning by unspecified drugs, medicaments and biological substances, accidental (unintentional), initial encounter (3) Altered mental status SNOMED Code(s): 878312842 ICD Code: R41.82 - ALTERED MENTAL STATUS, UNSPECIFIED Status: Acute Priority: High Current Visit: No Problem Details: Improving. continue the keppra until tomorrow ( 24 hours seizure free) and then can transition to oral or off medicaiton for a trial Due to benadryl abuse, possibility of cipro interaction but has not had this in 24 hours and continues so unlikely. Coudl be due to post concussion from fall 08/17/2021. Will continue to monitor. ativan for agitiation as needed. Doesnot recall events from 08/21/2021 Qualifiers: Altered mental status type: disorientation Qualified Code(s): R41.0 - Disorientation, unspecified (4) Seizures SNOMED Code(s): 15520215 ICD Code: R56.9 - UNSPECIFIED CONVULSIONS Status: Acute Priority: Medium Current Visit: No Problem Details: Probable due to benadryl, none in the last 12 hours. will continue keppra and consider switching to orals tomorrow then consider trial off. ativan for break through - Patient Summary/Data Consults: Consultations 08/21/21 18:24 Consult to Case Management/Returned Telephone Equipment Appraiser [CONS] Routine OT Evaluation and Treatment [CONS] Routine PT Evaluation and Treatment [CONS] Routine - Discharge Plan Prescriptions/Med Rec: cefTAZidime [Ceftazidime] 1 gm IV BID 2 Days #4 vial Folic Acid 1 mg PO DAILY #30 tablet Thiamine Mononitrate (Vit B1) [Vitamin B-1] 100 mg PO DAILY #30 tablet Home Medications: Home Meds Acetaminophen [Pain Relief] 650 mg PO Q6HR PRN 08/17/21 [History] Albuterol Sulfate [Albuterol Sulfate Hfa] 8.5 gm IH Q4HR PRN 08/17/21 [History] Budesonide/Formoterol Fumarate [Symbicort 80-4.5 MCG] 2 puff IH BID 08/17/21 [History] Cetirizine [ZyrTEC] 10 mg PO DAILY 08/17/21 [History] Escitalopram [Lexapro] 10 mg PO DAILY 08/17/21 [History] Fluticasone Propionate [Flovent] 2 spray NASBOTH DAILY 08/17/21 [History] Furosemide [Lasix] 20 mg PO DAILY 08/17/21 [History] Gabapentin [Neurontin] 300 mg PO TID 08/17/21 [History] Melatonin 6 mg PO BEDTIME 08/17/21 [History] Memantine HCl [Namenda] 10 mg PO BID 08/17/21 [History] QUEtiapine Fumarate [Seroquel] 50 mg PO DAILY 08/17/21 [History] Riboflavin (Vitamin B2) [Riboflavin] 200 mg PO BID 08/17/21 [History] carvediloL [Carvedilol] 3.125 mg PO BID 08/17/21 [History] diphenhydrAMINE/Zinc Acetate [Banophen Anti-Itch 2%] 1 applic TOP BID PRN 08/17/21 [History] lisinopriL [Lisinopril] 10 mg PO DAILY 08/17/21 [History] Folic Acid 1 mg PO DAILY #30 tablet 08/24/21 [Rx] Thiamine Mononitrate (Vit B1) [Vitamin B-1] 100 mg PO DAILY #30 tablet 08/24/21 [Rx] cefTAZidime [Ceftazidime] 1 gm IV BID 2 Days #4 vial 08/24/21 [Rx] Forms: ED Department Discharge Referrals: Raul Salazar PA [Physician Commodities Trader] - - Discharge Summary/Plan Comment DC Time >30 min.: Yes Total # of Minutes for Discharge Time: 60 - General Info Functional Status: Reports: Pain Controlled, Tolerating Diet, Urinating - Review of Systems General: Reports: No Symptoms HEENT: Reports: No Symptoms Pulmonary: Reports: No Symptoms Cardiovascular: Reports: No Symptoms Gastrointestinal: Reports: No Symptoms Genitourinary: Reports: No Symptoms Musculoskeletal: Reports: No Symptoms Skin: Reports: No Symptoms Neurological: Reports: Headache Psychiatric: Reports: No Symptoms. Denies: Suicidal Ideation (Denies suicidal ideation. History of pill hoarding/excessive medication intake in past.) - Patient Data Vitals - Most Recent: Last Vital Signs Temp 36.8 C 08/24/21 08:00 Pulse 65 08/24/21 08:37 Resp 18 08/24/21 08:00 BP 147/60 H 08/24/21 08:37 Pulse Ox 93 L 08/24/21 08:00 Weight - Most Recent: 67.5 kg I&O - Last 24 hours: Intake & Output 08/23/21 08/24/21 08/24/21 22:59 06:59 14:59 Intake Total 100 1250 Output Total 450 400 Balance -350 850 Lab Results - Last 24 hrs: Laboratory Results - last 24 hr 08/24/21 08/24/21 Range/Units 06:55 07:13 Sodium 140 (136-145) mmol/L Potassium 3.9 (3.5-5.1) mmol/L Chloride 106 (98-107) mmol/L Carbon Dioxide 21.1 (21.0-32.0) mmol/L Anion Gap 12.9 (7-15) meq/L BUN 14 (7-18) mg/dL Creatinine 0.87 (0.51-1.17) mg/dL Est Cr Clr Drug Dosing 58.19 mL/min Estimated GFR (MDRD) > 60 mL/min Glucose 103 H (70-99) mg/dL Calcium 8.2 L (8.5-10.1) mg/dL Specimen Type Urinfol Urine Color Yellow Urine Appearance Slightly cloudy Urine pH 5.5 (5.0-9.0) Ur Specific [place] >= 1.030 (1.005-1.030) Urine Protein 30 H (NEGATIVE) mg/dL Urine Glucose (UA) Negative (NEGATIVE) mg/dL Urine Ketones 40 H (NEGATIVE) mg/dL Urine Occult Blood Large H (NEGATIVE) Urine Nitrite Negative (NEGATIVE) Urine Bilirubin Small H (NEGATIVE) Urine Urobilinogen 0.2 (0.2-1.0) E.U./dL Ur Leukocyte Esterase Trace H (NEGATIVE) Urine RBC >100 H /HPF Urine WBC 5-10 H /HPF Ur Epithelial Cells Rare /LPF Urine Bacteria Few (NONE TO FEW) /HPF Granular Casts (Auto) Occasional Urine Mucus Few H (NEGATIVE) /LPF Med Orders - Current: Current Medications Acetaminophen (Acetaminophen 325 Mg Tab) 650 mg PO Q4H PRN PRN Reason: Pain (Mild 1-3)/fever Last Admin: 08/23/21 16:34 Dose: 650 mg Documented by: Albuterol (Albuterol 6.7 Gm Inhaler) 0 gm INH Q4HR PRN PRN Reason: Shortness of Breath Carvedilol (Carvedilol 3.125 Mg Tab) 3.125 mg PO BID [facility] Last Admin: 08/24/21 08:37 Dose: 3.125 mg Documented by: Cetirizine HCl (Cetirizine 10 Mg Tab) 10 mg PO DAILY [facility] Last Admin: 08/24/21 08:37 Dose: 10 mg Documented by: Enoxaparin Sodium (Enoxaparin 40 Mg/0.4 Ml Syringe) 40 mg SUBCUT DAILY [facility] Last Admin: 08/24/21 08:41 Dose: 40 mg Documented by: Escitalopram Oxalate (Escitalopram 20 Mg Tab) 10 mg PO DAILY [facility] Last Admin: 08/24/21 08:41 Dose: 10 mg Documented by: Fluticasone Propionate (Fluticasone Propionate Nasal [place] 16 Gm Bottle) 0 gm NASBOTH DAILY [facility] Last Admin: 08/24/21 08:43 Dose: 2 spray Documented by: Folic Acid (Folic Acid 1 Mg Tab) 1 mg PO DAILY [facility] Last Admin: 08/24/21 08:41 Dose: 1 mg Documented by: Furosemide (Furosemide 20 Mg Tab) 20 mg PO DAILY [facility] Last Admin: 08/24/21 08:41 Dose: 20 mg Documented by: Tobramycin 100 mg/ Sodium (Chloride) 102.5 mls @ 100 mls/hr IV Q8H [facility] Last Admin: 08/24/21 11:16 Dose: 100 mls/hr Documented by: Sodium Chloride (Normal Saline) 1,000 mls @ 100 mls/hr IV ASDIRECTED [facility] Last Admin: 08/23/21 06:21 Dose: 100 mls/hr Documented by: Thiamine HCl 500 mg/ Sodium (Chloride) 255 mls @ 250 mls/hr IV Q8H [facility] Stop: 08/24/21 20:00 Last Admin: 08/24/21 04:09 Dose: 250 mls/hr Documented by: Ibuprofen (Ibuprofen 200 Mg Tab) 400 mg PO Q6HR PRN PRN Reason: Pain Last Admin: 08/24/21 04:12 Dose: 400 mg Documented by: Lorazepam (Lorazepam 2 Mg/Ml Sdv) 1 mg IV Q1H PRN PRN Reason: Seizures Last Admin: 08/22/21 12:08 Dose: 1 mg Documented by: Melatonin (Melatonin 3 Mg Tab) 6 mg PO BEDTIME [facility] Last Admin: 08/23/21 20:31 Dose: 6 mg Documented by: Memantine (Memantine 10 Mg Tab) 10 mg PO BID [facility] Last Admin: 08/24/21 08:37 Dose: 10 mg Documented by: Mometasone Furoate/Formoterol Fumar (Formoterol/Mometasone 100-5 Mcg 8.8 Gm Inhaler) 2 puff IH BID [facility] Last Admin: 08/24/21 08:44 Dose: 2 puff Documented by: Morphine Sulfate (Morphine 2 Mg/Ml Syringe) 2 mg IVPUSH Q4H PRN PRN Reason: Pain (severe 7-10) Last Admin: 08/23/21 23:48 Dose: 2 mg Documented by: Non-Formulary Medication (Riboflavin (Vitamin B2) [Riboflavin]) 200 mg PO BID [facility] Pantoprazole Sodium (Pantoprazole 40 Mg Vial) 40 mg IV Q12HR [facility] Last Admin: 08/24/21 08:35 Dose: 40 mg Documented by: Promethazine HCl (Promethazine 25 Mg Tab) 25 mg PO Q6H PRN PRN Reason: nausea, able to take PO Last Admin: 08/22/21 01:07 Dose: 25 mg Documented by: Quetiapine Fumarate (Quetiapine 25 Mg Tab) 50 mg PO DAILY [facility] Last Admin: 08/24/21 08:36 Dose: 50 mg Documented by: Sodium Chloride (Sodium Chloride 0.9% 10 Ml Syringe) 10 ml FLUSH ASDIRECTED PRN PRN Reason: Keep Vein Open Last Admin: 08/22/21 19:34 Dose: 10 ml Documented by: Discontinued Medications Folic Acid (Folic Acid 50 Mg/10 Ml Mdv) 1 mg IV DAILY [facility] Last Admin: 08/21/21 21:13 Dose: 1 mg Documented by: Folic Acid (Folic Acid 50 Mg/10 Ml Mdv) 1 mg PO DAILY [facility] Last Admin: 08/22/21 10:58 Dose: Not Given Documented by: Levetiracetam (Levetiracetam In Nacl (Iso-Os)) Confirm Administered Dose 100 mls @ as directed .ROUTE .STK-MED ONE Stop: 08/21/21 16:55 Last Admin: 08/21/21 16:58 Dose: 400 mls/hr Documented by: Sodium Chloride (Normal Saline) 1,000 mls @ 999 mls/hr IV ASDIRECTED [facility] Last Admin: 08/21/21 17:23 Dose: 999 mls/hr Documented by: Thiamine HCl 500 mg/ Sodium (Chloride) 255 mls @ 250 mls/hr IV Q8H [facility] Stop: 08/24/21 20:00 Last Admin: 08/23/21 11:49 Dose: Not Given Documented by: Levetiracetam 500 mg/ Premix 100 mls @ 400 mls/hr IV BID [facility] Last Admin: 08/23/21 08:24 Dose: 400 mls/hr Documented by: Thiamine HCl 250 mg/ Sodium (Chloride) 252.5 mls @ 250 mls/hr IV DAILY [facility] Stop: 08/29/21 09:01 Ibuprofen (Ibuprofen 200 Mg Tab) 200 mg PO BID PRN PRN Reason: Pain Lorazepam (Lorazepam 2 Mg/Ml Sdv) 2 mg IVPUSH ONETIME ONE Stop: 08/21/21 16:12 Last Admin: 08/21/21 16:56 Dose: 1 mg Documented by: Lorazepam (Lorazepam 2 Mg/Ml Sdv) Confirm Administered Dose 2 mg .ROUTE .STK-MED ONE Stop: 08/21/21 17:12 Last Admin: 08/21/21 17:22 Dose: Not Given Documented by: Lorazepam (Lorazepam 2 Mg/Ml Sdv) 1 mg IVPUSH ONETIME ONE Stop: 08/21/21 17:17 Last Admin: 08/21/21 17:21 Dose: 1 mg Documented by: Morphine Sulfate (Morphine 2 Mg/Ml Syringe) 2 mg IVPUSH Q2H PRN PRN Reason: Pain (severe 7-10) Last Admin: 08/23/21 17:59 Dose: 2 mg Documented by: Nicotine (Nicotine 21 Mg/24 Hr Patch) 21 mg TRDERM ONETIME ONE Stop: 08/23/21 17:53 Last Admin: 08/23/21 18:10 Dose: 21 mg Documented by: - Exam Quality Assessment: Reports: Supplemental Oxygen General: Reports: Alert, Oriented HEENT: Reports: Pupils Equal, Pupils Reactive, EOMI, Mucous Membr. Moist/[place] Neck: Reports: Supple Lungs: Reports: Normal Respiratory Effort, Decreased Breath Sounds Cardiovascular: Reports: Regular Rate, Regular Rhythm GI/Abdominal Exam: Soft, Non-Tender, No Distention, No Mass (Male) Exam: Deferred Rectal (Males) Exam: Deferred Back Exam: Reports: Normal Inspection, Full Range of Motion Extremities: Normal Inspection, Normal Range of Motion, Non-Tender, No Pedal Edema, Normal Capillary Refill Skin: Reports: Warm Neurological: Reports: No New Focal Deficit
[2021-08-25] MEDS ORDERED: Thiamine 250 MG in Sodium Chloride 0.9% 250 ML IV SCH (08:00)
== END 2021-08-24 13:20 | DRG 918 ==
LOC: LL.ED 16:25 → SUPCPDRO 16:25 → LL.MS 17:45
PROVIDERS: ADMIT Physician Assistant; ATTEND Physician Assistant
DX: T45.0X1A Poisoning by antiallergic and antiemetic drugs, accidental (unintentional), initial encounter (principal); T50.901A Poisoning by unspecified drugs, medicaments and biological substances, accidental (unintentional), initial encounter; R41.82 Altered mental status, unspecified; N39.0 Urinary tract infection, site not specified; R56.9 Unspecified convulsions; I50.9 Heart failure, unspecified; Z79.51 Long term (current) use of inhaled steroids; J44.9 Chronic obstructive pulmonary disease, unspecified; Z91.81 History of falling; F32.A Depression, unspecified; F10.11 Alcohol abuse, in remission; Z79.899 Other long term (current) drug therapy; B96.5 Pseudomonas (aeruginosa) (mallei) (pseudomallei) as the cause of diseases classified elsewhere
CPT/HCPCS: 36415; 70450; 71045; 80053; 80143; 80179; 80305; 80307; 81003; 83605; 84484; 85025; 86140; 93005; J1953; J2060 ×2; J7030; 51702; 80048; 81001; 83735; 87086; 94640; 96365; 96375; 97161-GP; 97530-GP; 99285-25; A9270-GY; C9113; J1650; J2270; J3260; J3411; J3490; J7050